=== PATIENT | male | born 1960 | race African-American/Black ===

== ENCOUNTER 2016-11-01 14:57 | Inpatient (IN) | payer BC ==
--- NOTE | 2016-11-01 15:24 | PDOC ---
Attending Attestation - Resident Resident Name: Andre Clemons - ED Attending Attestation I have performed the following: I have examined & evaluated the patient, The case was reviewed & discussed with the resident, I agree w/resident's findings & plan, Exceptions are as noted - HPI HPI: 11/01/16 19:29 56y F hx of HIV (on HAART, VRL und), chronic back pain (upper lumbar region, s/ p epidural injections) presents with back pain. pt states he bent over to cough earlier and aftewards felt a pop in his lower back, no associated numbness/ tingling/weakness, radiation of pain, fever/chills, urinary incontinence, stool incontience. On exam pt has b/l tenderness to lower back. Minima midline tenderness. no neuro deficits, neg SLR lumbar xray notd for L1 compresion fx, however pts tenderness seems to be more distal, in the L5 region here. suspect this is old. awaiting sacral xray pt feeling mildly improved with toradol, but will give valium as well as he is still in persistent pain. pt signed out to on coming team. (dale/aramis) for reassessment and disposition - Physicial Exam PE: 11/01/16 19:33 see above - Medical Decision Making 11/01/16 19:34 see above
[2016-11-01] MEDS ORDERED: CYCLOBENZAPRINE HCL 10 MG TABLET (FP) PO ONE (15:37)
[2016-11-01] MEDS ORDERED: KETOROLAC TROMETHAMINE 60 MG/2 ML VIAL IM ONE ×2 (15:37→23:16)
--- NOTE | 2016-11-01 15:45 | PDOC ---
History of Present Illness - General Chief Complaint: Back Pain Stated Complaint: PAIN Time Seen by Provider: 11/01/16 15:11 - History of Present Illness Initial Comments: 11/01/16 15:37 Patient is a 56 year old male with a history of chronic back pain, HTN, HIV who presents with sudden onset lower back pain. The patient reports that earlier today, he was experiencing a cough and feeling nausea. He was bent over at the toilet when he coughed and felt a pop in his back with immediate severe sharp pain prompting him to present to the ED via EMS today. He endorses some shaking down his legs bilaterally, but denies any tingling down the legs or saddle anesthesia. He denies any fevers, chills, chest pain, SOB, abdominal pain, changes with urination or bowel movements or incontinence. He reports that his current viral load is undetectable. Past History - Past Medical History Allergies/Adverse Reactions: Allergies Allergy/AdvReac Type Severity Reaction Status Date / Time No Known Allergies Allergy Verified 08/10/14 13:37 Home Medications: Ambulatory Orders Darunavir/Cobicistat [Prezcobix 800 mg-150 mg Tablet] 1 each PO DAILY 11/01/16 Dolutegravir Sodium [Tivicay] 50 mg PO BID 11/01/16 Gabapentin [Neurontin] 900 mg PO HS 11/01/16 Losartan Potassium [Cozaar] 50 mg PO DAILY 11/01/16 Oxycodone HCl 20 mg PO QID PRN 11/01/16 Zolpidem Tartrate 10 mg PO HS PRN 11/01/16 HTN: Yes (no meds) - Surgical History Abdominal Surgery: Yes (inguinal hernia) Gastric Stapling: Yes (bipass) - Psycho/Social/Smoking Cessation Hx Anxiety: No Suicidal Ideation: No Smoking History: Never smoked Number of Cigarettes Smoked Daily: 5 Hx Alcohol Use: No Substance Use Type: None Review of Systems - Review of Systems Constitutional: No: Chills, Fever HEENTM: No: Recent change in vision Respiratory: No: Cough, Shortness of Breath Cardiac (ROS): No: Chest Pain, Palpitations, Chest Tightness ABD/GI: No: Constipated, Diarrhea, Nausea, Vomiting : No: Dysuria, Incontinence Musculoskeletal: Yes: Back Pain Integumentary: No: Rash Neurological: No: Headache, Numbness, Paresthesia, Tingling, Weakness *Physical Exam - Physical Exam Comments: 11/01/16 15:49 General Appearance: Nourished. No Apparent Distress HEENT: No Pharyngeal Erythema, Tonsillar Exudate, Tonsillar Erythema Respiratory/Chest: Lungs Clear, Normal Breath Sounds. No Crackles, Rales, Rhonchi, Wheezing Cardiovascular: Regular Rhythm, Regular Rate. No Murmur, Gallop/S3, Gallop/S4 Gastrointestinal/Abdominal: Normal Bowel Sounds, Soft. No Guarding, Rebound, Tenderness Extremity: Normal Capillary Refill Integumentary: Normal Color, Dry, Warm Neurologic: Fully Oriented, Alert, Normal Mood/Affect, Normal Response, Motor Strength 5/5, Sensation to light touch and temperature intact bilaterally in lower extremeties. ED Treatment Course - LABORATORY CBC & Chemistry Diagram: 11/02/16 00:06 11/02/16 00:07 - RADIOLOGY Radiology Studies Ordered: Category Date Time Status SPINE-LUMBAR ONLY [RAD] Stat Radiology 11/01/16 15:35 Ordered Medical Decision Making - Medical Decision Making 11/01/16 15:50 Patient is a 56 year old male with a history of HTN, HIV, and chronic back pain who presents with sudden onset lower back pain. Differential includes but is not limited to: Disk Herniation, Musculoskeletal strain, Cauda Equina Syndrome, Epidural Abscess, or Fracture. We have a low suspicion for epidural abscess or cauda equina syndrome given the patient's reported history and physical exam. Disk herniation is possible but also less likely given his lack of neurological findings such as tingling down the legs. We will obtain a lumbar radiograph to rule out fracture. Given his history and physical exam, the most likely cause of his symptoms is musculoskeletal strain. We will treat the patient with toradol and flexeril and reassess. 11/01/16 19:08 Patient signed out to Dr. Daigle. Pending lumbar sacral radiograph. *DC/Admit/Observation/Transfer Diagnosis at time of Disposition: Lumbar compression fracture Qualifiers: Encounter type: initial encounter Fracture type: closed Qualified Code(s): S32.000A - Wedge compression fracture of unspecified lumbar vertebra, initial encounter for closed fracture - Attestations Physician Attestion: 11/02/16 08:06 I, Dr. Andre Clemons, attest that this document has been prepared under my direction and personally reviewed by me in its entirety. I further attest, that it accurately reflects all work, treatment, procedures and medical decision -making performed by me.
[2016-11-01] MEDS ORDERED: KETOROLAC TROMETHAMINE 60 MG/2 ML VIAL ONE ×2 (16:03→23:20)
[2016-11-01] MEDS ORDERED: CYCLOBENZAPRINE HCL 10 MG TABLET (FP) ONE (16:04)
[2016-11-01] MEDS ORDERED: diazePAM 5 MG TABLET PO ONE (19:02)
--- NOTE | 2016-11-01 19:24 | PDOC ---
*Physical Exam - Vital Signs Last Vital Signs Temp Pulse Resp BP Pulse Ox 98.2 F 100 H 16 181/108 98 11/01/16 15:00 11/01/16 15:00 11/01/16 15:00 11/01/16 15:00 11/01/16 15:00 ED Treatment Course - LABORATORY CBC & Chemistry Diagram: 11/02/16 00:06 11/02/16 00:07 - Medications Given in the ED: ED Medications Discontinued Medications Generic Name Dose Route Start Last Admin Trade Name Demar PRN Reason Stop Dose Admin Cyclobenzaprine HCl 10 mg 11/01/16 15:37 11/01/16 16:07 Flexeril - PO 11/01/16 15:38 10 mg ONCE ONE Administration Ketorolac Tromethamine 60 mg 11/01/16 15:37 11/01/16 16:07 Toradol Injection - IM 11/01/16 15:38 60 mg ONCE ONE Administration Medical Decision Making - Medical Decision Making 11/01/16 21:41 Patient is a 56 year old male with a history of HTN, HIV, and chronic back pain who presents with sudden onset lower back pain. Differential includes but is not limited to: Disk Herniation, Musculoskeletal strain, Cauda Equina Syndrome, Epidural Abscess, or Fracture. Sign out received from Dr. Andre Clemons. Lumbo-sacral xray revealed L1 fracture. Following up with MRI pending. 11/02/16 00:17 Dr Song consulted, confirmed acute L1 vertebral body compression fracture. Will evaluate the patient tomorrow for need of procedure. Until then patient to be admitted. *DC/Admit/Observation/Transfer Diagnosis at time of Disposition: Lumbar compression fracture Qualifiers: Encounter type: initial encounter Fracture type: closed Qualified Code(s): S32.000A - Wedge compression fracture of unspecified lumbar vertebra, initial encounter for closed fracture
[2016-11-01] MEDS ORDERED: diazePAM 5 MG TABLET ONE (19:34)
[2016-11-01] MEDS ORDERED: METHOCARBAMOL 500 MG TABLET PO ONE (23:16)
[2016-11-01] MEDS ORDERED: METHOCARBAMOL 500 MG TABLET ONE (23:19)
--- NOTE | 2016-11-02 00:04 | PDOC ---
*Physical Exam - Vital Signs Last Vital Signs Temp Pulse Resp BP Pulse Ox 98.2 F 100 H 16 181/108 98 11/01/16 15:00 11/01/16 15:00 11/01/16 15:00 11/01/16 15:00 11/01/16 15:00 ED Treatment Course - LABORATORY CBC & Chemistry Diagram: 11/02/16 00:06 11/02/16 00:07 - RADIOLOGY Radiology Studies Ordered: Category Date Time Status LUMBAR SPINE MRI W/O CONTRAST [MRI] Stat MRI 11/01/16 22:33 Ordered - Medications Given in the ED: ED Medications Discontinued Medications Generic Name Dose Route Start Last Admin Trade Name Freq PRN Reason Stop Dose Admin Cyclobenzaprine HCl 10 mg 11/01/16 15:37 11/01/16 16:07 Flexeril - PO 11/01/16 15:38 10 mg ONCE ONE Administration Diazepam 5 mg 11/01/16 19:02 11/01/16 19:36 Valium - PO 11/01/16 19:03 5 mg ONCE ONE Administration Ketorolac Tromethamine 60 mg 11/01/16 15:37 11/01/16 16:07 Toradol Injection - IM 11/01/16 15:38 60 mg ONCE ONE Administration Ketorolac Tromethamine 60 mg 11/01/16 23:16 11/01/16 23:16 Toradol Injection - IM 11/01/16 23:17 60 mg ONCE ONE Administration Methocarbamol 1,000 mg 11/01/16 23:16 11/01/16 23:16 Robaxin - PO 11/01/16 23:17 1,000 mg ONCE ONE Administration Medical Decision Making - Medical Decision Making 11/02/16 00:[address] Sergei Cavanaugh for evaluation of pt. He will evaluate and probably take pt to OR in the morning. *DC/Admit/Observation/Transfer Diagnosis at time of Disposition: Lumbar compression fracture Qualifiers: Encounter type: initial encounter Fracture type: closed Qualified Code(s): S32.000A - Wedge compression fracture of unspecified lumbar vertebra, initial encounter for closed fracture - Discharge Dispostion Admit: Yes
[2016-11-02] MEDS ORDERED: LABETALOL HCL 5 MG/1 ML (100MG/20 ML VIAL) IVPUSH ONE (00:47)
[2016-11-02 00:58] LABS: BASOPHIL 0.9 % (0-2.0); EOSINOPHIL 1.3 % (0-4.5); MCH 29.9 pg (25.7-33.7); MCHC 33.3 g/dl (32.0-35.9); MEAN CELL VOLUME 89.6 fl (80-96); MEAN PLT VOLUME 8.2 fl (7.5-11.1); NEUTROPHILS 67.6 % (42.8-82.8); PLATELET COUNT 213 K/MM3 (134-434); RDW 12.6 % (11.9-15.9)
[2016-11-02 01:22] LABS: INR 0.96 (0.82-1.09); PROTHROMBIN TIME (PATIENT) 10.6 SEC (9.98-11.88)
[2016-11-02] MEDS ORDERED: morphine CARPU-JECT 2 MG/1 ML DISP.SYRIN IVPUSH ONE (01:27)
--- NOTE | 2016-11-02 01:48 | HP ---
CHIEF COMPLAINT: Sever lower back pain. PCP: HISTORY OF PRESENT ILLNESS: Patient is a 56 Year Old, AA, Male, with PMHx of HTN, HIV(on HAART, VRL), chronic lower back pain S/P epidural injection, recent bronchitis, who presented to the ED today with sudden sever lower back pain that started around 12:00 this afternoon. Patient reports he was bending forward about to throw up due to nausea but coughed instead and heard a pop in his lower back causing him to have severe pain. He was on the floor not able to get up till the EMS arrived and carried him. The pain is 10/10 , local, sharp, continuous, does not radiate to lower legs. Patient denies any numbness, tingling, weakness, bladder incontinence, bowel incontinence or saddle anesthesia. Patient denies fever, chills, headache, blurry vision, chest pain, abdominal pain, N/V/D/C. he denies any urinary symptoms. ER course was notable for: (1)Lumbo-sacral xray revealed L1 fracture. (2)Morphine 2 mg IV push Once , Valium 5 mg PO once , Ketorlac IM 60 mg , flexeril 10 mg PO . (3)MRI Lumbar spine was ordered Recent Travel:NO PAST MEDICAL HISTORY: PAST SURGICAL HISTORY:bariatric surgery, L shoulder rotator cuff. Social History: . Smokin/2 pack a day for 40 years Alcohol:None Drugs: None Family History: HTN , DM, dementia with his mother. Allergies: NKDA No Known Allergies Allergy (Verified 08/10/14 13:37) HOME MEDICATIONS: Home Medications Medication Instructions Recorded Darunavir/Cobicistat [Prezcobix 1 each PO DAILY 11/01/16 800 mg-150 mg Tablet] Dolutegravir Sodium [Tivicay] 50 mg PO BID 11/01/16 Gabapentin [Neurontin] 900 mg PO HS 11/01/16 Losartan Potassium [Cozaar] 50 mg PO DAILY 11/01/16 Oxycodone HCl 20 mg PO QID PRN 11/01/16 Zolpidem Tartrate 10 mg PO HS PRN 11/01/16 Current Medications Generic Name Dose Route Start Last Admin Trade Name Freq PRN Reason Stop Dose Admin Gabapentin 900 mg 11/02/16 22:00 Neurontin - PO HS [facility] Losartan Potassium 50 mg 11/02/16 10:00 Cozaar - PO DAILY [facility] Morphine Sulfate 2 mg 11/02/16 02:22 Morphine Injection - IVPUSH Q4H PRN PAIN Non-Formulary Medication 1 each 11/02/16 10:00 Darunavir/Cobicistat [Prezcobix 800 Mg-150 Mg Tablet] PO DAILY [facility] Non-Formulary Medication 50 mg 11/02/16 10:00 Dolutegravir Sodium PO BID [facility] Zolpidem Tartrate 10 mg 11/02/16 02:31 Ambien - PO HS PRN INSOMNIA REVIEW OF SYSTEMS CONSTITUTIONAL: Absent: fever, chills, diaphoresis, generalized weakness, malaise, loss of appetite, weight change HEENT: Absent: rhinorrhea, nasal congestion, throat pain, throat swelling, difficulty swallowing, mouth swelling, ear pain, eye pain, visual changes CARDIOVASCULAR: Absent: chest pain, syncope, palpitations, irregular heart rate, lightheadedness , peripheral edema RESPIRATORY: Absent: cough, shortness of breath, dyspnea with exertion, orthopnea, wheezing, stridor, hemoptysis GASTROINTESTINAL: Absent: abdominal pain, abdominal distension, nausea, vomiting, diarrhea, constipation, melena, hematochezia GENITOURINARY: Absent: dysuria, frequency, urgency, hesitancy, hematuria, flank pain, genital pain MUSCULOSKELETAL: Absent: myalgia, arthralgia, joint swelling,+ lower back pain, neck pain SKIN: Absent: rash, itching, pallor HEMATOLOGIC/IMMUNOLOGIC: Absent: easy bleeding, easy bruising, lymphadenopathy, frequent infections ENDOCRINE: Absent: unexplained weight gain, unexplained weight loss, heat intolerance, cold intolerance NEUROLOGIC: Absent: headache, focal weakness or paresthesias, dizziness, unsteady gait, seizure, mental status changes, bladder or bowel incontinence PSYCHIATRIC: Absent: anxiety, depression, suicidal or homicidal ideation, hallucinations. PHYSICAL EXAMINATION Vital Signs - 24 hr 11/02/16 00:58 Pulse Rate [ 86 Right Apical] Respiratory 18 Rate Blood Pressure 191/121 [Right Arm] O2 Sat by Pulse 98 Oximetry (%) GENERAL: Awake, alert, and fully oriented, in no acute distress. HEAD: Normal with no signs of trauma. EYES: Pupils equal, round and reactive to light, extraocular movements intact, sclera anicteric, conjunctiva clear. No lid lag. NECK: Normal range of motion, supple without lymphadenopathy, JVD, or masses. LUNGS: Breath sounds equal, clear to auscultation bilaterally. No wheezes, and no crackles. No accessory muscle use. HEART: Regular rate and rhythm, normal S1 and S2 without murmur, rub or gallop. ABDOMEN: Soft, nontender, not distended, normoactive bowel sounds, no guarding, no rebound, no masses. No hepatomegaly or splenomegaly. MUSCULOSKELETAL: limited range of motion due to back pain. No bony deformities or tenderness. No CVA tenderness. UPPER EXTREMITIES: 2+ pulses, warm, well-perfused. No cyanosis. No clubbing. No peripheral edema. LOWER EXTREMITIES: 2+ pulses, warm, well-perfused. No calf tenderness. No peripheral edema. NEUROLOGICAL: Cranial nerves II-XII intact. Normal speech. b/l tenderness to lower back. Minimal midline tenderness. no neuro deficits, neg SLR PSYCHIATRIC: Cooperative. Good eye contact. Appropriate mood and affect. SKIN: Warm, dry, normal turgor, no rashes or lesions noted, normal capillary refill. Laboratory Results - last 24 hr 11/02/16 11/02/16 11/02/16 00:06 00:06 00:06 WBC 6.0 RBC 4.43 Hgb 13.2 Hct 39.7 MCV 89.6 MCH 29.9 MCHC 33.3 RDW 12.6 Plt Count 213 MPV 8.2 Neutrophils % 67.6 Lymphocytes % 17.0 Monocytes % 13.2 H Eosinophils % 1.3 Basophils % 0.9 INR 0.96 Anti-A Titer Cancelled Blood Type Cancelled * Antibody Screen Cancelled Spec Expiration Date Cancelled #lumbar xray: shows L1 compression fracture # CXR no acute pathology # MRI Lumbar: Shows Acute partial compression fracture at L1 with Schmorl node on L5, B/L S5 Spondylolysis. ASSESSMENT/PLAN: Patient is a 56 Year Old, AA, Male, with PMHx of HTN, HIV(on HAART, VRL und), chronic lower back pain S/P epidural injection who presented to the ED today with sudden sever lower back pain. He was found to have L1 Compression fracture , and hypertensive urgency 191/121 and was admitted to [facility]-surg for further evaluation and management. # Compression L1 fracture likely 2/2 osteoporosis vs malignancy MM, * Patient is smoker and had bariatric surgery, with no systemic symptoms * CBC, BMP * ESR * TSH * lumbar X-ray and lumbar MRI shows Acute partial compression fracture at L1 with Schmorl node on L5,B/L S5 Spondylolysis. * consult neurosurgery * pain control 2 mg Morphine IV push Q 4 hr , continue Gabapentin 900 mg PO HS. * NPO * Possible procedure tomorrow * # Hypertensive urgency likely 2/2 pain vs med noncompliant, resolved * BP on admission 191/121 * Labetalol 10 mg IV push, Hydralazine 10 mg IV push once given in the ED * BP drop to 156/84 * BP monitor * # HTN, chronic * Continue home meds: Losartan Potassium 50 mg PO DAILY, * BP monitor * Low sodium diet * ##HIV, chronic * Viral load is undetectable, CD4 is unknown * Continue home meds Dolutegravir Sodium [Tivicay]50 mg PO BID,Prezcobix1 each PO DAILY # Insomnia: * Continue home meds Zolpidem 10 mg PO #Prophylaxis: * DVT : moderate risk, not on Heparin , possible surgery tomorrow * #F/E/N * F: not on any fluids * E: WNL * N: NPO now, low sodium diet after procedure #Dispo: * Admit to med-surg * Full code * # Patient education * Smoking cessation
[2016-11-02] MEDS ORDERED: LABETALOL HCL 5 MG/1 ML (200MG/40ML VIAL) IVPB ONE (01:51)
[2016-11-02] MEDS ORDERED: morphine CARPU-JECT 4 MG/1 ML DISP.SYRIN ONE (01:52)
[2016-11-02 02:00] LABS: ANION GAP 8 (8-16); CALCIUM 8.5 mg/dL (8.5-10.1); CO2 25 mmol/L (21-32); CREATININE 0.8 mg/dL (0.7-1.3); GLUCOSE,RANDOM 84 mg/dL (74-106)
[2016-11-02] MEDS ORDERED: ZOLPIDEM TARTRATE 5 MG TABLET PO PRN (02:31)
[2016-11-02] MEDS ORDERED: hydrALAZINE HCL 20 MG/ML VIAL IVPUSH ONE (02:31)
[2016-11-02] MEDS ORDERED: hydrALAZINE HCL 20 MG/ML VIAL ONE ×2 (02:36→15:23)
[2016-11-02 04:47] LABS: THYROID STIMULATING HORMONE 1.51 uIU/ml (0.358-3.74)
[2016-11-02 04:51] VITALS: BMI 26.4
[2016-11-02] MEDS: morphine CARPU-JECT 2 MG/1 ML DISP.SYRIN IVPUSH PRN ×2 (05:43→09:57)
--- NOTE | 2016-11-02 06:59 | PN ---
Teaching Attending Note Name of Resident: Liborio Winslow ATTENDING PHYSICIAN STATEMENT I saw and evaluated the patient. I reviewed the resident's note and discussed the case with the resident. I agree with the resident's findings and plan as documented. SUBJECTIVE: 56 y/o M with HIV and HTN, s/p fall at home after feeling something snap in his lower back. Patient was unable to ambulate after and c/o numbness but no incontinence. PMH: back problems on disability. OBJECTIVE: A&Ox3 in acute distress with movement. bilateral paraspinal tenderness lumbar sacral area, sensation intact. CBCD WBC 6.0 K/mm3 (4.0-10.0) 11/02/16 00:06 RBC 4.43 M/mm3 (4.00-5.60) 11/02/16 00:06 Hgb 13.2 GM/dL (11.7-16.9) 11/02/16 00:06 Hct 39.7 % (35.4-49) 11/02/16 00:06 MCV 89.6 fl (80-96) 11/02/16 00:06 MCHC 33.3 g/dl (32.0-35.9) 11/02/16 00:06 RDW 12.6 % (11.9-15.9) 11/02/16 00:06 Plt Count 213 K/MM3 (134-434) 11/02/16 00:06 MPV 8.2 fl (7.5-11.1) 11/02/16 00:06 CMP Sodium 135 mmol/L (136-145) L 11/02/16 00:07 Potassium 4.4 mmol/L (3.5-5.1) 11/02/16 00:07 Chloride 102 mmol/L (98-107) 11/02/16 00:07 Carbon Dioxide 25 mmol/L (21-32) 11/02/16 00:07 Anion Gap 8 (8-16) 11/02/16 00:07 BUN 17 mg/dL (7-18) 11/02/16 00:07 Creatinine 0.8 mg/dL (0.7-1.3) 11/02/16 00:07 Calcium 8.5 mg/dL (8.5-10.1) 11/02/16 00:07 ASSESSMENT AND PLAN: L1 vertebral compression fracture and b/l L5 spondylolysis Bed rest Pain medication morphine prn Laxatives as needed Neurosurgery consult in AM PT once stable fall risk precautions. DVT prophylaxis Continue home medications Uncontrolled HTN- most likely secondary to pain Labetalol given and continue Losartan.
--- NOTE | 2016-11-02 07:33 | SPA.PREOP ---
- PRE-OP NOTE Dx: L1 burst fracture with intractable pain Planned Procedure: T12-L2 posterior spinal fusion w/ distraction and reduction of kyphotic angulation Surgeon: Sergei Cavanaugh Consent: To be obtained by surgeon after risks, benefits and alternatives explained. Last Vital Signs Temp Pulse Resp BP Pulse Ox 97.9 F 76 18 166/95 100 11/02/16 03:00 11/02/16 03:00 11/02/16 03:00 11/02/16 03:00 11/02/16 03:00 Lab Results WBC 6.0 K/mm3 (4.0-10.0) 11/02/16 00:06 RBC 4.43 M/mm3 (4.00-5.60) 11/02/16 00:06 Hgb 13.2 GM/dL (11.7-16.9) 11/02/16 00:06 Hct 39.7 % (35.4-49) 11/02/16 00:06 MCV 89.6 fl (80-96) 11/02/16 00:06 MCHC 33.3 g/dl (32.0-35.9) 11/02/16 00:06 RDW 12.6 % (11.9-15.9) 11/02/16 00:06 Plt Count 213 K/MM3 (134-434) 11/02/16 00:06 Sodium 135 mmol/L (136-145) L 11/02/16 00:07 Potassium 4.4 mmol/L (3.5-5.1) 11/02/16 00:07 Chloride 102 mmol/L (98-107) 11/02/16 00:07 Carbon Dioxide 25 mmol/L (21-32) 11/02/16 00:07 Anion Gap 8 (8-16) 11/02/16 00:07 BUN 17 mg/dL (7-18) 11/02/16 00:07 Creatinine 0.8 mg/dL (0.7-1.3) 11/02/16 00:07 Random Glucose 84 mg/dL (74-106) 11/02/16 00:07 Calcium 8.5 mg/dL (8.5-10.1) 11/02/16 00:07 Blood Type AB POSITIVE 11/02/16 03:40 Antibody Screen Negative 11/02/16 03:40 INR 0.96 (0.82-1.09) 11/02/16 00:06 - ASSESSMENT/PLAN 1. NPO / IVF 2. GI/DVT PPX 3. Medical optimization / clearance 4. Going to OR today Visit type - Case Type Case Type: ED Admission - Emergency Emergency Visit: Yes ED Registration Date: 11/02/16 Care time: The patient presented to the Emergency Department on the above date and was hospitalized for further evaluation of their emergent condition. - New patient This patient is new to me today: Yes Date on this admission: 11/02/16
[2016-11-02] MEDS ORDERED: BUPIVACAINE HCL/PF 0.5% (5MG/ML) 10 ML VIAL ONE (08:51)
[2016-11-02 09:35] LABS: ALBUMIN 3.3 g/dl (3.4-5.0); ANION GAP 8 (8-16); BILIRUBIN,TOTAL 0.6 mg/dL (0.2-1.0); CALCIUM 8.3 mg/dL (8.5-10.1); CO2 25 mmol/L (21-32); CREATININE 0.9 mg/dL (0.7-1.3); GLUCOSE,RANDOM 100 mg/dL (74-106); PHOSPHOROUS 3.6 mg/dL (2.5-4.9); SGOT/AST 20 U/L (15-37); SGPT/ALT 25 U/L (12-78); TOT PROT 7.1 g/dl (6.4-8.2)
[2016-11-02 09:36] LABS: ALK PHOS 80 U/L (45-117)
[2016-11-02] MEDS ORDERED: PATIENT'S OWN MEDICATION (NON-FORMULARY) (Dolutegravir Sodium 50 MG) PO SCH (10:00)
[2016-11-02] MEDS ORDERED: PATIENT'S OWN MEDICATION (NON-FORMULARY) (Darunavir/Cobicistat [Prezcobix 800 Mg-150 Mg Ta PO SCH (10:00)
[2016-11-02] MEDS ORDERED: LOSARTAN POTASSIUM 25 MG TABLET PO SCH (10:00)
--- NOTE | 2016-11-02 10:09 | CONSULT ---
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 He has had recent epidural steroid injections for his back and recently developed a URI. He also has had bariatric surgery and is HIV positive. He suffered a bout of violent coughing and episodes of nausea at noon on November 01, 2016 when he noticed a sudden "pop" in his back and incapacitating pain which precluded him from moving. He states repeatedly that he cannot walk and cannot bear weight. He is clearly in great distress and turning and shifting in bed is exceptionally difficult for him. He was brought in by ambulance to the [facility] ER. Plain films demonstrate a compression fracture at L1 and bilateral L5 pars fractures with L45 endplate injuries. MRI was ordered and this confirmed these findings and is notable for edema in the L1 body suggesting acuity of the fracture as well as retropulsion of bone which leads to appropriate characterization of this fracture as a burst fracture. There is no obvious posterior element disruption and mild angulation at this level. I discussed the risks, benefits and alternatives to T12-L2 posterior spinal fusion with sabianism of alignment and reduction of the retropulsion through ligamentotaxis with the patient in great detail. I explained that the risks included, but were not limited to: , coma, paralysis, bleeding, infection, CSF leakage possibly requiring spinal drainage or additional surgery and failure to improve. I explained that surgery was not absolutely mandatory, however, given his severe mechanical back pain and incapacitation, this will likely represent a logical treatment plan to mitigate risk of developing DVT or further kyphotic angulation. I explained that the L45 and L5S1 pathologies may be amenable to surgical attention and this may be considered once he recovers from this procedure. He has a chronic pain syndrome and is taking daily narcotics (Oxycontin) with a potentially treatable set of pain generators. We agreed to discuss his lower Lumbar spine chronic problems at a later date. He has bilateral L5 pars fractures and L5S1 foraminal compromise with L45 endplate degeneration/schmorl's nodes which may have an acute componant as well. All questions were answered. Informed consent was obtained. I offered the patient the option of not having surgery or seeking another opinion or another surgeon. He verbalized an understanding of this information. The patient asks that we proceed on an expedited basis.
--- NOTE | 2016-11-02 11:51 | EKG ---
Test Reason : Blood Pressure : / mmHG Vent. Rate : 080 BPM Atrial Rate : 080 BPM P-R Int : 118 ms QRS Dur : 090 ms QT Int : 398 ms P-R-T Axes : 079 044 213 degrees QTc Int : 459 ms NORMAL SINUS RHYTHM POSSIBLE LEFT ATRIAL ENLARGEMENT LEFT VENTRICULAR HYPERTROPHY WITH REPOLARIZATION ABNORMALITY ABNORMAL ECG NO PREVIOUS ECGS AVAILABLE Confirmed by KAEL ALCALA MD ([id number]) on 11/02/2016 11:51:27 AM Referred By: Confirmed By:KAEL ALCALA MD
[2016-11-02] MEDS ORDERED: morphine CARPU-JECT 4 MG/1 ML DISP.SYRIN IVPUSH PRN (12:20)
[2016-11-02] MEDS ORDERED: DOCUSATE SODIUM 100 MG CAPSULE (FP) PO SCH (12:30)
[2016-11-02] MEDS ORDERED: ONDANSETRON 4 MG/2 ML VIAL IVPUSH PRN ×3 (13:16→18:55)
[2016-11-02] MEDS ORDERED: PROMETHAZINE HCL 25 MG/1 ML VIAL IVPUSH PRN ×2 (13:16→18:55)
[2016-11-02] MEDS ORDERED: GENTAMICIN SO4 80 MG/2 ML VIAL ONE (13:23)
[2016-11-02] MEDS ORDERED: SODIUM CHLORIDE 0.9% P/F 10 ML VIAL IJ ONE ×2 (13:24→13:25)
[2016-11-02] MEDS ORDERED: LIDOCAINE HCL/PF 2% SDV 5ML VIAL ONE (13:24)
[2016-11-02] MEDS ORDERED: ROCURONIUM BROMIDE 50 MG/5 ML VIAL ONE ×2 (13:24→14:03)
[2016-11-02] MEDS ORDERED: MIDAZOLAM HCL 2 MG/2 ML SINGLE DOSE VIAL ONE (13:24)
--- NOTE | 2016-11-02 13:24 | PN ---
Teaching Attending Note Name of Resident: Kristen Smith ATTENDING PHYSICIAN STATEMENT I saw and evaluated the patient. I reviewed the resident's note and discussed the case with the resident. I agree with the resident's findings and plan as documented. SUBJECTIVE:states LBP not controlled with pain medications. denies numbness/ tingling, sensation change, bladder/bowel incontinence last saw PMD 2weeks ago. as per pt routine labs were done and normal per him. OBJECTIVE: Last Vital Signs Temp Pulse Resp BP Pulse Ox 98.1 F 74 18 179/106 100 11/02/16 10:00 11/02/16 10:11/02/16 10:11/02/16 10:11/02/16 03:00 General NAD CV S1 S2 RRR no murmur/rub/gallop Lungs CTA B/l no wheezing/rales/rhonchi Extremities sensation grossly intact B/L LE. strength 4/5 B/L LE which was limited due to pain. did not attempt full ROM excercise due to pain elicited at rest. back not examined as pt refused due to pain ASSESSMENT AND PLAN: 56yo M with PMH HTN, HIV and chronic back pain presented to the ER with excruciating back pain 1. Acute L1 fracture- concern for pathological fracture although pt does have risk factors (chronic low back pain with osteoarthritis and receives steroid injections for pain) NPO for spinal fusion today. will increase morphine to improve pain control. will need to r/o pathological fractures. calcium level/ renal/liver/TSH all WNL. may have malabsorption issues due to bariatric surgery (likley [id number] but does not recall which one "the major one"). urine calcium and testosterone levels pending. will need to check vit D as outpatient as not able to order on inpatients. HARRT therapy can cause osteonecrosis however atypical to see in vertebrae and this appears to be acute with no suggestion of bone necrosis. PT 2. HTN- above goal. possible due to pain. continue home medications will adjust after pain is controlled 3. HIV- cont HARRT therapy 4. DVT ppx- SCD as pt is going for spinal surgery 5. PT assessment as may require SAMIA on discharge.
[2016-11-02] MEDS ORDERED: ceFAZolin SODIUM 1 GM VIAL ONE ×2 (13:25→21:27)
[2016-11-02] MEDS ORDERED: LACTATED RINGERS SOLUTION 1,000 ML IV SCH ×2 (13:30→16:45)
--- NOTE | 2016-11-02 13:50 | PN ---
Physical Exam: SUBJECTIVE: Patient seen and examined at bedside. Pt states that his back pain is severe and that the dosage he is currently on is not enough. Denies SOB, chest pain, or pain in his lower extremities. Pt is NPO for T12-L2 spinal fusion today. OBJECTIVE: Vital Signs Period Temp Pulse Resp BP Sys/Silva Pulse Ox Last 24 Hr 97.9 F-98.1 F 74-86 16-18 156-191/84-121 98-100 GENERAL: The patient is awake, alert, and fully oriented, in no acute distress. HEAD: Normal with no signs of trauma. EYES: PERRL, extraocular movements intact, sclera anicteric, conjunctiva clear. No ptosis. ENT: oropharynx clear without exudates, moist mucous membranes. NECK: Trachea midline, supple. LUNGS: Breath sounds equal, clear to auscultation bilaterally, no wheezes, no crackles, no accessory muscle use. HEART: Regular rate and rhythm, S1, S2 without murmur, rub or gallop. ABDOMEN: Soft, nontender, nondistended, normoactive bowel sounds, no guarding, no rebound, no hepatosplenomegaly, no masses. EXTREMITIES: 2+ posterior tibial, radial pulses, difficult to assess motor strength due to pt's severe back pain NEUROLOGICAL: Cranial nerves II through XII grossly intact. Laboratory Results - last 24 hr 11/02/16 11/02/16 11/02/16 00:06 00:06 00:06 WBC 6.0 RBC 4.43 Hgb 13.2 Hct 39.7 MCV 89.6 MCH 29.9 MCHC 33.3 RDW 12.6 Plt Count 213 MPV 8.2 Neutrophils % 67.6 Lymphocytes % 17.0 Monocytes % 13.2 H Eosinophils % 1.3 Basophils % 0.9 ESR INR 0.96 PTT (Actin FS) Sodium Potassium Chloride Carbon Dioxide Anion Gap BUN Creatinine Creat Clearance w eGFR Random Glucose Calcium Phosphorus Total Bilirubin AST ALT Alkaline Phosphatase Total Protein Albumin TSH Anti-A Titer Cancelled Blood Type Cancelled Antibody Screen Cancelled Spec Expiration Date Cancelled 11/02/16 11/02/16 11/02/16 00:07 03:40 03:40 WBC RBC Hgb Hct MCV MCH MCHC RDW Plt Count MPV Neutrophils % Lymphocytes % Monocytes % Eosinophils % Basophils % ESR INR PTT (Actin FS) 27.3 Sodium 135 L Potassium 4.4 Chloride 102 Carbon Dioxide 25 Anion Gap 8 BUN 17 Creatinine 0.8 Creat Clearance w eGFR Random Glucose 84 Calcium 8.5 Phosphorus Total Bilirubin AST ALT Alkaline Phosphatase Total Protein Albumin TSH Anti-A Titer Blood Type AB POSITIVE Antibody Screen Negative Spec Expiration Date 11/02/16 11/02/16 11/02/16 03:40 03:40 06:00 WBC RBC Hgb Hct MCV MCH MCHC RDW Plt Count MPV Neutrophils % Lymphocytes % Monocytes % Eosinophils % Basophils % ESR 19 INR PTT (Actin FS) Sodium 137 Cancelled Potassium 4.0 Cancelled Chloride 104 Cancelled Carbon Dioxide 25 Cancelled Anion Gap 8 Cancelled BUN 17 Cancelled Creatinine 0.9 Cancelled Creat Clearance w eGFR > 60 Cancelled Random Glucose 100 Cancelled Calcium 8.3 L Cancelled Phosphorus 3.6 Total Bilirubin 0.6 Cancelled AST 20 Cancelled ALT 25 Cancelled Alkaline Phosphatase 80 Cancelled Total Protein 7.1 Cancelled Albumin 3.3 L Cancelled TSH 1.51 Anti-A Titer Blood Type Antibody Screen Spec Expiration Date Active Medications Generic Name Dose Route Start Last Admin Trade Name Freq PRN Reason Stop Dose Admin Docusate Sodium 100 mg 11/02/16 12:30 Colace - PO DAILY [facility] Fentanyl 50 mcg 11/02/16 13:16 Sublimaze Injection - IVPUSH 11/05/16 13:17 [id number] PRN PAIN Gabapentin 900 mg 11/02/16 22:00 Neurontin - PO HS [facility] Lactated Ringer's 1,000 mls @ 125 mls/hr 11/02/16 13:30 Lactated Ringers Solution IV ASDIR RENUKA Losartan Potassium 50 mg 11/02/16 10:00 11/02/16 09:57 Cozaar - PO 50 mg DAILY RENUKA Administration Morphine Sulfate 3 mg 11/02/16 12:20 Morphine Injection - IVPUSH Q4H PRN PAIN Non-Formulary Medication 1 each 11/02/16 10:00 Darunavir/Cobicistat [Prezcobix 800 Mg-150 Mg Tablet] PO DAILY RENUKA Non-Formulary Medication 50 mg 11/02/16 10:00 Dolutegravir Sodium PO BID [facility] Ondansetron HCl 4 mg 11/02/16 13:16 Zofran Injection IVPUSH 11/02/16 19:17 Q6H PRN NAUSEA AND/OR VOMITING Promethazine HCl 12.5 mg 11/02/16 13:16 Phenergan Injection - IVPUSH 11/02/16 19:17 Q6H PRN NAUSEA Senna 2 tab 11/02/16 22:00 Senna - PO HS RENUKA Zolpidem Tartrate 10 mg 11/02/16 02:31 Ambien - PO HS PRN INSOMNIA ASSESSMENT/PLAN: 56 yr old M with PMH HTN, HIV (on HAART), chronic lower back pain s/p epidural injection, who presented to ED with sudden, severe lower back pain. Pt admitted for L1 compression fracture and HTN urgency. 1. L1 burst fracture with intractable pain -Lumbar x-ray and MRI reveal acute partial compression fx at L1 -T12-L2 posterior spinal fusion today -R/o malignancy, osteonecrosis from HIV meds- F/u urine Ca, testosterone -PT after surgery -Morphine has been increased to 3mg IVP q4 (from 2mg) since pt endorses increased pain 2. HTN urgency likely secondary to pain -BP on admission 191/121, received Labetalol 10 mg IVP, hydralazine 10mg IVP in ED -Monitor BP 3. HTN- chronic -Continue home medication: Cozaar 50 mg PO daily 4. Delayed bladder emptying -F/u PSA 5. Constipation -Senna, colace added to regimen 6. HIV- chronic -Continue home meds Dolutegravir Sodium 50 mg PO BID, Prezcobiz1 each PO daily 7. Insomnia -Continue Zolpidem 10mg PO 8. DVT prophylaxis -SCD's F/E/N -not on fluids -monitor electrolytes -NPO now, low sodium diet after procedure Visit type - Emergency Visit Emergency Visit: No - New Patient This patient is new to me today: No - Critical Care Critical Care patient: No
[2016-11-02] MEDS ORDERED: ceFAZolin SODIUM 1 GM VIAL IVPB ONE (14:38)
[2016-11-02] MEDS ORDERED: DEXAMETHASONE SOD PHOSPHATE 4 MG/1 ML VIAL ONE ×2 (14:46→16:05)
[2016-11-02] MEDS ORDERED: PROPOFOL 20 ML ONE (15:30)
[2016-11-02] MEDS ORDERED: NEOSTIGMINE METHYLSULFATE 0.5 MG/ML - 10 ML MDV ONE (16:04)
[2016-11-02] MEDS ORDERED: BUPIVACAINE HCL/PF 0.5% (5MG/ML) 10 ML VIAL IJ ONE (16:20)
[2016-11-02] MEDS ORDERED: PROMETHAZINE HCL 25 MG/1 ML VIAL IVPB PRN (16:36)
[2016-11-02] MEDS ORDERED: DEXAMETHASONE SOD PHOSPHATE 4 MG/1 ML VIAL IVPUSH PRN (16:36)
[2016-11-02] MEDS ORDERED: HYDROmorphone *PCA* 10MG/50ML DISP.SYRIN PCA SCH (16:45)
[2016-11-02] MEDS ORDERED: ACETAMINOPHEN 1000 MG/100 ML VIAL (NON FORMULARY) IVPB ONE (16:45)
--- NOTE | 2016-11-02 16:56 | OP ---
Operative Note - Note: Operative Date: 11/02/16 Pre-Operative Diagnosis: L1 compression fracture Operation: T12-L1 fusion Surgeon: Sergei Cavanaugh Commercial Escrow Officer: Rakel Lowery Anesthesiologist/MEMS ENGINEER: Jose Becerril Anesthesia: General Estimated Blood Loss (mls): 100 Drains, Volume Out (mls): 100 (gao) Fluid Volume Replaced (mls): 1,300 Operative Report Dictated: Yes
--- NOTE | 2016-11-02 17:00 | SURG ---
Surgery Service Crew Supervisor Note Service Crew Supervisor: Rakel Lowery PA-C Date of Service: 11/02/16 Diagnosis: L1 compression fracture Procedure: T12-L2 fusion I was present for the entirety of the operative procedure. For further detail, please refer to operative report. Visit type - Case Type Case Type: ED Admission - Emergency Emergency Visit: Yes ED Registration Date: 11/02/16 Care time: The patient presented to the Emergency Department on the above date and was hospitalized for further evaluation of their emergent condition. - New patient This patient is new to me today: Yes Date on this admission: 11/02/16 - Critical Care Critical Care patient: No
[2016-11-02] MEDS ORDERED: LORAZEPAM CARPU-JECT 2 MG/ML DISP.SYRIN ONE (17:17)
[2016-11-02] MEDS ORDERED: LORAZEPAM CARPU-JECT 2 MG/ML DISP.SYRIN IVPUSH ONE (17:20)
[2016-11-02] MEDS: LACTATED RINGERS SOLUTION 1,000 ML IV SCH (17:30)
[2016-11-02] MEDS ORDERED: DEXTROSE 5%-WATER - 50 ML IVPB ONE (21:28)
[2016-11-02] MEDS: GABAPENTIN 300 MG CAPSULE (FP) PO SCH (21:31)
[2016-11-02] MEDS: SENNOSIDES 8.6MG TABLET (FP) PO SCH (21:32)
[2016-11-02] MEDS: CEFAZOLIN 1 GM in DEXTROSE 5%-WATER - 50 ML IVPB SCH (21:33)
[2016-11-02] MEDS ORDERED: SENNOSIDES 8.6MG TABLET (FP) PO SCH (22:00)
[2016-11-02] MEDS ORDERED: GABAPENTIN 300 MG CAPSULE (FP) PO SCH (22:00)
[2016-11-03] MEDS: LACTATED RINGERS SOLUTION 1,000 ML IV SCH ×2 (02:50→10:32)
[2016-11-03] MEDS ORDERED: ceFAZolin SODIUM 1 GM VIAL ONE (05:21)
[2016-11-03] MEDS ORDERED: DEXTROSE 5%-WATER - 50 ML IVPB ONE (05:21)
[2016-11-03] MEDS: CEFAZOLIN 1 GM in DEXTROSE 5%-WATER - 50 ML IVPB SCH (05:29)
[2016-11-03 09:19] LABS: BASOPHIL 0.2 % (0-2.0); MCH 30.2 pg (25.7-33.7); MCHC 33.3 g/dl (32.0-35.9); MEAN CELL VOLUME 90.9 fl (80-96); NEUTROPHILS 78.5 % (42.8-82.8); PLATELET COUNT 216 K/MM3 (134-434); RDW 12.5 % (11.9-15.9); WHITE BLOOD COUNT 10.1 K/mm3 (4.0-10.0)
[2016-11-03] MEDS: LOSARTAN POTASSIUM 50 MG TABLET (FP) PO SCH (10:31)
[2016-11-03] MEDS: DOCUSATE SODIUM 100 MG CAPSULE (FP) PO SCH (10:31)
[2016-11-03 10:32] LABS: ANION GAP 8 (8-16); CALCIUM 8.3 mg/dL (8.5-10.1); CO2 26 mmol/L (21-32); CREATININE 0.9 mg/dL (0.7-1.3); GLUCOSE,RANDOM 109 mg/dL (74-106)
--- NOTE | 2016-11-03 11:09 | PN ---
Teaching Attending Note Name of Resident: Kristen Smith ATTENDING PHYSICIAN STATEMENT I saw and evaluated the patient. I reviewed the resident's note and discussed the case with the resident. I agree with the resident's findings and plan as documented. SUBJECTIVE:states pain is not controlled. not able to move due to pain/fear of being in pain. denies CP, SOB, fever, chills, N/V/C/D OBJECTIVE: Last Vital Signs Temp Pulse Resp BP Pulse Ox 98.5 F 95 H 20 156/92 100 11/03/16 06:12 11/03/16 06:12 11/03/16 06:12 11/03/16 06:12 11/02/16 21:00 General NAD Extremities sensation grossly intact B/L LE. refused to move legs. ASSESSMENT AND PLAN: 56yo M with PMH HTN, HIV and chronic back pain presented to the ER with excruciating back pain 1. Acute L1 fracture-s/p T12-L2 fusion 11/02. on dilaudid UX UI DESIGNER pump. will increase bolus dosing to achieve pain control. further management per neurosurgery. workup for cause pending. urine calcium and testosterone level. 2. HTN- above goal. possible due to pain. continue home medications will adjust after pain is controlled 3. HIV- cont HARRT therapy 4. DVT ppx- SCD as pt is going for spinal surgery 5. PT assessment as may require SAMIA on discharge.
[2016-11-03] MEDS: HYDROmorphone *PCA* 10MG/50ML DISP.SYRIN PCA SCH (11:22)
[2016-11-03] MEDS ORDERED: ACETAMINOPHEN 1000 MG/100 ML VIAL (NON FORMULARY) IVPB PRN (11:30)
--- NOTE | 2016-11-03 11:39 | PN ---
Progress Note (short form) - Note Progress Note: Pot op day#1.S/P T12-L2 Posterior instrumentation with fusion under Ga uneventful.Patient stable and c/0 pain score of 5-6/10.So will continue Dilaudid PROFESSOR OF MUSICOLOGY and aid Lyrica and Ofirmev to it.Will f/u.
[2016-11-03] MEDS ORDERED: PREGABALIN 100 MG CAPSULE PO SCH (11:45)
--- NOTE | 2016-11-03 12:21 | PN ---
Progress Note (short form) - Note Progress Note: Patient stable after Lumbar 1 fracture stabilization. He has expected incisional pain associated with the procedure performed and his chronic pain history. Dr. Haven Becerril was available to discuss his pain needs and we agreed with elevating his Dilaudid CAR PARK ATTENDANT and adding Lyrica. All questions answered. I again discussed the potential role of L4-S1 decompression and stabilization to address persisting pain generators with possible recent aggravation of L45. The patient verbalizes an understanding.
[2016-11-03] MEDS: PATIENT'S OWN MEDICATION (NON-FORMULARY) (Dolutegravir Sodium 50 MG) PO SCH ×3 (12:55→21:17)
[2016-11-03] MEDS: PATIENT'S OWN MEDICATION (NON-FORMULARY) (Darunavir/Cobicistat [Prezcobix 800 Mg-150 Mg Ta PO SCH (12:55)
[2016-11-03] MEDS ORDERED: PT OWN MED DRAWER 7, Y5N ONE (13:01)
[2016-11-03] MEDS: PREGABALIN 50 MG CAPSULE PO SCH ×2 (13:43→21:14)
--- NOTE | 2016-11-03 14:30 | PN ---
Physical Exam: SUBJECTIVE: Patient seen and examined at bedside. Pt is s/p spinal fusion. Pt states that his pain is severe and that the MANAGER OF COMPENSATION is not sufficient. He feels more uncomfortable than he did before the surgery and mentions that he is unable to move. OBJECTIVE: Vital Signs Period Temp Pulse Resp BP Sys/Silva Pulse Ox Last 24 Hr 98.1 F-99.5 F 76-130 12-21 101-163/49-92 100-100 GENERAL: The patient is awake, alert, and fully oriented, in mild distress HEAD: Normal with no signs of trauma. EYES: PERRL, extraocular movements intact, sclera anicteric, conjunctiva clear. NECK: Trachea midline, supple. LUNGS: Breath sounds equal, clear to auscultation bilaterally, no wheezes, no crackles, no accessory muscle use. HEART: Regular rate and rhythm, S1, S2 without murmur, rub or gallop. ABDOMEN: Soft, nontender, nondistended, normoactive bowel sounds, no guarding, no rebound, no hepatosplenomegaly, no masses. EXTREMITIES: 2+ posterior tibial pulses, warm, well-perfused, no edema. Difficult to assess strength as pt's back pain is severe, sensation however is intact in upper and lower extremities NEUROLOGICAL: Cranial nerves II through XII grossly intact. Laboratory Results - last 24 hr 11/03/16 11/03/16 06:40 06:40 WBC 10.1 H D RBC 4.03 Hgb 12.2 Hct 36.6 MCV 90.9 MCH 30.2 MCHC 33.3 RDW 12.5 Plt Count 216 MPV 9.0 Neutrophils % 78.5 Lymphocytes % 8.3 D Monocytes % 13.0 H Eosinophils % 0.0 D Basophils % 0.2 Sodium 136 Potassium 4.2 Chloride 102 Carbon Dioxide 26 Anion Gap 8 BUN 12 D Creatinine 0.9 Random Glucose 109 H Calcium 8.3 L Active Medications Generic Name Dose Route Start Last Admin Trade Name Freq PRN Reason Stop Dose Admin Acetaminophen 650 mg 11/02/16 16:43 Tylenol - PO Q6H PRN FEVER OR PAIN Docusate Sodium 100 mg 11/03/16 10:00 11/03/16 10:31 Colace - PO 100 mg DAILY RENUKA Administration Gabapentin 900 mg 11/02/16 22:00 11/02/16 21:31 Neurontin - PO 900 mg HS RENUKA Administration Hydromorphone HCl 10 mg 11/03/16 10:33 11/03/16 11:22 Dilaudid Sports Therapist - MANAGER OF COMPENSATION 11/09/16 16:36 10 mg MANAGER OF COMPENSATION RENUKA Administration Protocol Lactated Ringer's 1,000 mls @ 125 mls/hr 11/02/16 18:55 11/03/16 10:32 Lactated Ringers Solution IV 125 mls/hr ASDIR RENUKA Administration Losartan Potassium 50 mg 11/03/16 10:00 11/03/16 10:31 Cozaar - PO 50 mg DAILY RENUKA Administration Non-Formulary Medication 1 each 11/03/16 10:00 11/03/16 12:55 Darunavir/Cobicistat [Prezcobix 800 Mg-150 Mg Tablet] PO 1 each DAILY RENUKA Administration Non-Formulary Medication 50 mg 11/02/16 22:00 11/03/16 12:55 Dolutegravir Sodium PO 50 mg BID RENUKA Administration Pregabalin 100 mg 11/03/16 13:01 11/03/16 13:43 Lyrica - PO 100 mg BID RENUKA Administration Promethazine HCl 12.5 mg 11/02/16 16:36 Phenergan Injection - IVPB Q6H PRN NAUSEA AND/OR VOMITING Senna 2 tab 11/02/16 22:00 11/02/16 21:32 Senna - PO 2 tab HS RENUKA Administration ASSESSMENT/PLAN: 56 yr old M with PMH HTN, HIV (on HAART), chronic lower back pain s/p epidural injection, who presented to ED with sudden, severe lower back pain. Pt admitted for L1 compression fracture and HTN urgency. 1. L1 burst fracture with intractable pain -/sp spinal fusion -R/o malignancy, osteonecrosis from HIV meds- F/u urine Ca, testosterone -still pending -PT after surgery as will be rec by neurosurgery -MANAGER OF COMPENSATION setting has been changed to 0.4mg Bolus (from 0.2) d/t pt's severe pain -Lyrica 100 mg PO BID 2. HTN urgency likely secondary to pain -BP on admission 191/121, received Labetalol 10 mg IVP, hydralazine 10mg IVP in ED -BP now 140/86, improved 3. HTN- chronic -Continue Cozaar 50 mg PO daily 4. Delayed bladder emptying -F/u PSA - still pending 5. Constipation -Senna, colace added to regimen 6. HIV- chronic -Continue home meds Dolutegravir Sodium 50 mg PO BID, Prezcobiz1 each PO daily 7. Insomnia -Continue Zolpidem 10mg PO 8. DVT prophylaxis -SCD's F/E/N -LR 125 mls/hr -monitor electrolytes -on clear liquids, if tolerate can advance diet Visit type - Emergency Visit Emergency Visit: No - New Patient This patient is new to me today: No - Critical Care Critical Care patient: No
[2016-11-03] MEDS: GABAPENTIN 300 MG CAPSULE (FP) PO SCH (21:14)
[2016-11-03] MEDS: SENNOSIDES 8.6MG TABLET (FP) PO SCH (21:15)
[2016-11-04] MEDS: ACETAMINOPHEN 325 MG TABLET (FP) PO PRN ×2 (01:45→22:51)
[2016-11-04] MEDS: HYDROmorphone *PCA* 10MG/50ML DISP.SYRIN PCA SCH ×2 (03:41→19:41)
[2016-11-04] MEDS ORDERED: VANCOMYCIN 1 GRAM (PRE-DOCKED) 1,000 MG/250 ML BAG IVPB ONE ×2 (06:30→11:00)
[2016-11-04] MEDS ORDERED: PIPERACILLIN/TAZOB 3.375 GM/50 ML PRE-DOCKED IV ONE (06:30)
[2016-11-04] MEDS ORDERED: PIPERACILLIN/TAZOB 3.375 GM 3.375 GM in DEXTROSE 5%-WATER - 50 ML IVPB ONE ×2 (07:00→11:00)
[2016-11-04 07:52] LABS: BASOPHIL 0.6 % (0-2.0); EOSINOPHIL 0.1 % (0-4.5); MCH 29.7 pg (25.7-33.7); MCHC 32.8 g/dl (32.0-35.9); MEAN CELL VOLUME 90.6 fl (80-96); NEUTROPHILS 74.6 % (42.8-82.8); PLATELET COUNT 164 K/MM3 (134-434); RDW 12.3 % (11.9-15.9); WHITE BLOOD COUNT 11.7 K/mm3 (4.0-10.0)
[2016-11-04 07:56] LABS: ANION GAP 6 (8-16); CALCIUM 8.1 mg/dL (8.5-10.1); CO2 27 mmol/L (21-32); CREATININE 0.9 mg/dL (0.7-1.3); GLUCOSE,RANDOM 86 mg/dL (74-106)
[2016-11-04] MEDS: LACTATED RINGERS SOLUTION 1,000 ML IV SCH ×2 (08:11→15:43)
--- NOTE | 2016-11-04 08:49 | PN ---
Progress Note (short form) - Note Progress Note: c/o back pain on movement. pain is controlled when at rest. c/o dysuria and band like pain across his abdomen. similar to pain he had when he first arrived. no BM since arrival to the hospital. denies Cp, SOB, chills, N/V/D, YOST , AMS, photophobia Current Medications Generic Name Dose Route Start Last Admin Trade Name Freq PRN Reason Stop Dose Admin Acetaminophen 650 mg 11/02/16 16:43 11/04/16 01:45 Tylenol - PO 650 mg Q6H PRN Administration FEVER OR PAIN Docusate Sodium 100 mg 11/03/16 10:00 11/03/16 10:31 Colace - PO 100 mg DAILY RENUKA Administration Gabapentin 900 mg 11/02/16 22:00 11/03/16 21:14 Neurontin - PO 900 mg HS RENUKA Administration Hydromorphone HCl 10 mg 11/03/16 10:33 11/04/16 03:41 Dilaudid Front Desk Supervisor - HVAC TECH 11/09/16 16:36 10 mg HVAC TECH RENUKA Administration Protocol Lactated Ringer's 1,000 mls @ 125 mls/hr 11/02/16 18:55 11/04/16 08:11 Lactated Ringers Solution IV Not Given ASDIR RENUKA Losartan Potassium 50 mg 11/03/16 10:00 11/03/16 10:31 Cozaar - PO 50 mg DAILY RENUKA Administration Non-Formulary Medication 1 each 11/03/16 10:00 11/03/16 12:55 Darunavir/Cobicistat [Prezcobix 800 Mg-150 Mg Tablet] PO 1 each DAILY RENUKA Administration Non-Formulary Medication 50 mg 11/02/16 22:00 11/03/16 21:17 Dolutegravir Sodium PO 50 mg BID RENUKA Administration Pregabalin 100 mg 11/03/16 13:01 11/03/16 21:14 Lyrica - PO 100 mg BID RENUKA Administration Promethazine HCl 12.5 mg 11/02/16 16:36 Phenergan Injection - IVPB Q6H PRN NAUSEA AND/OR VOMITING Senna 2 tab 11/02/16 22:00 11/03/16 21:15 Senna - PO 2 tab HS RENUKA Administration Last Vital Signs Temp Pulse Resp BP Pulse Ox 101.6 F H 102 H 20 178/99 99 11/04/16 06:00 11/04/16 07:41 11/04/16 07:41 11/04/16 07:41 11/03/16 21:00 Intake & Output 11/01/16 11/02/16 11/03/16 11/04/16 23:59 23:59 23:59 23:59 Intake Total 2550 2825 1850 Output Total 1405 2215 1815 Balance 1145 610 35 Weight 175 lb 168 lb 7 oz General NAD Lungs CTA B/L anteriorly no wheezing or crackles Abdomen soft mildly distended NT back occlusive dressing mid-spine. area very tender. no erythema, warmth, or induration. +BLAZE drain in sangenous drainage. Extremities sensation grossly intact B/L LE. ROM B/L LE limited due to pain CBCD WBC 11.7 K/mm3 (4.0-10.0) H 11/04/16 06:00 RBC 4.12 M/mm3 (4.00-5.60) 11/04/16 06:00 Hgb 12.3 GM/dL (11.7-16.9) 11/04/16 06:00 Hct 37.4 % (35.4-49) 11/04/16 06:00 MCV 90.6 fl (80-96) 11/04/16 06:00 MCHC 32.8 g/dl (32.0-35.9) 11/04/16 06:00 RDW 12.3 % (11.9-15.9) 11/04/16 06:00 Plt Count 164 K/MM3 (134-434) D 11/04/16 06:00 MPV 9.0 fl (7.5-11.1) 11/04/16 06:00 CMP Sodium 133 mmol/L (136-145) L 11/04/16 06:00 Potassium 4.6 mmol/L (3.5-5.1) 11/04/16 06:00 Chloride 100 mmol/L (98-107) 11/04/16 06:00 Carbon Dioxide 27 mmol/L (21-32) 11/04/16 06:00 Anion Gap 6 (8-16) L 11/04/16 06:00 BUN 11 mg/dL (7-18) 11/04/16 06:00 Creatinine 0.9 mg/dL (0.7-1.3) 11/04/16 06:00 Creat Clearance w eGFR Cancelled 11/02/16 06:00 Calcium 8.1 mg/dL (8.5-10.1) L 11/04/16 06:00 Total Bilirubin Cancelled 11/02/16 06:00 AST Cancelled 11/02/16 06:00 ALT Cancelled 11/02/16 06:00 Alkaline Phosphatase Cancelled 11/02/16 06:00 Total Protein Cancelled 11/02/16 06:00 Albumin Cancelled 11/02/16 06:00 ASSESSMENT AND PLAN: 56yo M with PMH HTN, HIV and chronic back pain presented to the ER with excruciating back pain 1. Acute L1 fracture-s/p T12-L2 fusion 11/02. BLAZE drain with sangenous drainage. on dilaudid HVAC TECH pump. started on lyrica. pain improved. further management per neurosurgery. OOB to chair. workup for cause pending. urine calcium and testosterone level. 2. Fever- Tm 102.7. mild leukocytosis. sepsis workup initiated. CXR with no infiltrate. possible UTI vs bactermia with BLAZE catheter in place. no meningeal signs. received Vanco/Zosyn. spoke with neurosurgery, will evaluate today and remove drain. will do watchful waiting at this time. agreed if pt has additional fever spike with consult ID and treat empiricaly as pt is immunocompromised. UA pending. f/u BCX. will monitor closely 3. HTN- above goal. possible due to pain. continue home medications will adjust after pain is controlled 4. Constipation-likley opiate induced vs fear of having BM as pt does not want to move. on colace/senna start miralax 5. HIV- cont HARRT therapy 6. DVT ppx- SCD 7. PT assessment as may require SAMIA on discharge. Visit type - Emergency Visit Emergency Visit: Yes ED Registration Date: 11/02/16 Care time: The patient presented to the Emergency Department on the above date and was hospitalized for further evaluation of their emergent condition. - New Patient This patient is new to me today: No - Critical Care Critical Care patient: No - Discharge Referral Referred to [facility] Med P.C.: No
--- NOTE | 2016-11-04 09:31 | PN ---
Progress Note (short form) - Note Progress Note: POD #2 - s/p T12-L2 posterior instrumentation with interbody fusion under general anesthesia with dilaudid EXPLOSIVE SPECIALIST for postop pain management. Pt. doing well, resting comfortably in bed. C/o pain upon movement. Dilaudid EXPLOSIVE SPECIALIST dose increased yesterday to 0.4mg from 0.2mg. Lyrica was added as well. Will continue EXPLOSIVE SPECIALIST and reevaluate tomorrow.
[2016-11-04] MEDS ORDERED: PIPERACILLIN/TAZOBACTAM 3.375 GM VIAL IVPB ONE (10:48)
[2016-11-04] MEDS ORDERED: DEXTROSE 5%-WATER - 50 ML IVPB ONE (10:49)
[2016-11-04] MEDS ORDERED: PT OWN MED DRAWER 7, Y5N ONE ×2 (10:49→11:48)
[2016-11-04] MEDS: PREGABALIN 50 MG CAPSULE PO SCH ×2 (11:03→22:42)
[2016-11-04] MEDS: DOCUSATE SODIUM 100 MG CAPSULE (FP) PO SCH (11:04)
[2016-11-04] MEDS: LOSARTAN POTASSIUM 50 MG TABLET (FP) PO SCH (11:04)
[2016-11-04] MEDS: PATIENT'S OWN MEDICATION (NON-FORMULARY) (Darunavir/Cobicistat [Prezcobix 800 Mg-150 Mg Ta PO SCH (11:05)
[2016-11-04] MEDS: PATIENT'S OWN MEDICATION (NON-FORMULARY) (Dolutegravir Sodium 50 MG) PO SCH ×2 (11:05→22:43)
[2016-11-04] MEDS: POLYETHYLENE GLYCOL 3350 119 GM BTL PO SCH (11:06)
[2016-11-04 15:35] LABS: URINE APPEARANCE CLEAR; URINE BILIRUBIN NEGATIVE (NEGATIVE); URINE BLOOD NEGATIVE (NEGATIVE); URINE COLOR LTYELLOW; URINE GLUCOSE (UA) NEGATIVE (NEGATIVE); URINE KETONE NEGATIVE (NEGATIVE); URINE LEUK ESTERASE NEGATIVE (NEGATIVE); URINE NITRITE NEGATIVE (NEGATIVE); URINE PROTEIN NEGATIVE (NEGATIVE)
[2016-11-04] MEDS: SENNOSIDES 8.6MG TABLET (FP) PO SCH (22:42)
[2016-11-04] MEDS: GABAPENTIN 300 MG CAPSULE (FP) PO SCH (22:42)
[2016-11-05 00:05] LABS: TESTOSTERONE,TOTAL 362 ng/dL (264-916)
[2016-11-05] MEDS: HYDROmorphone *PCA* 10MG/50ML DISP.SYRIN PCA SCH (06:08)
[2016-11-05 08:04] LABS: BASOPHIL 0.8 % (0-2.0); MCH 30.2 pg (25.7-33.7); MCHC 33.5 g/dl (32.0-35.9); MEAN CELL VOLUME 90.4 fl (80-96); MEAN PLT VOLUME 8.6 fl (7.5-11.1); NEUTROPHILS 70.3 % (42.8-82.8); PLATELET COUNT 162 K/MM3 (134-434); RDW 12.4 % (11.9-15.9); WHITE BLOOD COUNT 9.4 K/mm3 (4.0-10.0)
--- NOTE | 2016-11-05 09:02 | PN ---
Progress Note (short form) - Note Progress Note: ID consult dictated imp/reccd 56 year old man with HIV (followed by Dr Davis reports viral load suppressed) , hisotrry of chronic back pain followed by pain management admitted for sudden onset back pain- acute L! compression fracture s/p T12/L1 fusion on 11/02 now with fevers to 102.7 yesterdday reports feeling hot and sweats, no chills or rigors no cough, no sob, no vomiting, no abdominal pain no dysuria constipation-no BM since admission received cefazolin periop received vancomycin and zosyn yesterday afternoon cultures sent cxray no clear infiltrate has BLAZE drain with minimal bloody drainage continues to complain of back pain nontoxic postop fevers=pod #3 no source noted ?hypoventilation doubt HIV related- UA negative blood cultures negative after 24 hours awaiting surgical f/u to examine surgical wound-he refuses to let me look at his back encourage incentive spirometry encourage OOB needs a laxative observe off antibiotics for now consider duplex of legs r/o dvt awaiting surgical evaluation of back wound d/w Dr Rizo he reports wound examined yesterday and was OK hiv- continue ART, check cd4 count f/u Dr Davis at [facility] Problem List - Problems (1) Postoperative fever Code(s): R50.82 - POSTPROCEDURAL FEVER (2) HIV (human immunodeficiency virus infection) Code(s): B20 - HUMAN IMMUNODEFICIENCY VIRUS [HIV] DISEASE
[2016-11-05] MEDS ORDERED: oxyCODONE HCL 5 MG TABLET PO PRN ×3 (09:31→13:16)
--- NOTE | 2016-11-05 09:43 | PN ---
Progress Note (short form) - Note Progress Note: Anesthesiology Pain Service POD#3 s/p TLIF under GA with post-op ASSESSMENT COUNSELOR. Pt. states that he still has pain and is using the ASSESSMENT COUNSELOR regularly,which was confirmed by RN. He is taking PO with no difficulty. I d/w pt. as well as RN a trial of changing to PO meds today. I have d/c'd the ASSESSMENT COUNSELOR and ordered ATC Oxycontin as well as PRN Oxycodone for breakthrough pain. Will adjust as needed. Otherwise, VSS.
[2016-11-05] MEDS ORDERED: PT OWN MED DRAWER 7, Y5N ONE ×2 (11:03→13:34)
[2016-11-05] MEDS: LOSARTAN POTASSIUM 50 MG TABLET (FP) PO SCH (11:18)
[2016-11-05] MEDS: DOCUSATE SODIUM 100 MG CAPSULE (FP) PO SCH ×2 (11:18→21:50)
[2016-11-05] MEDS: oxyCODONE HCL 10 MG SUSTAINED ACTING TABLET PO SCH ×2 (11:18→21:49)
[2016-11-05] MEDS: POLYETHYLENE GLYCOL 3350 119 GM BTL PO SCH (11:19)
[2016-11-05] MEDS: PATIENT'S OWN MEDICATION (NON-FORMULARY) (Darunavir/Cobicistat [Prezcobix 800 Mg-150 Mg Ta PO SCH (11:19)
[2016-11-05] MEDS: PATIENT'S OWN MEDICATION (NON-FORMULARY) (Dolutegravir Sodium 50 MG) PO SCH ×2 (11:19→22:05)
[2016-11-05] MEDS: PREGABALIN 50 MG CAPSULE PO SCH ×2 (11:19→21:47)
--- NOTE | 2016-11-05 11:24 | PN ---
Physical Exam: SUBJECTIVE: Patient seen and examined at bedside. He states that his back still hurts, but it is improved from the wkend. Overnight, pt spiked fever to 102F. Denies chills, chest or extremity pain. OBJECTIVE: Vital Signs Period Temp Pulse Resp BP Sys/Silva Pulse Ox Last 24 Hr 99.0 F-102.1 F 97-111 18-20 137-172/82-101 99 GENERAL: The patient is awake, alert, and fully oriented, in mild distress HEAD: Normal with no signs of trauma. EYES: PERRL, extraocular movements intact, sclera anicteric, conjunctiva clear. NECK: Trachea midline, supple. LUNGS: Breath sounds equal, clear to auscultation bilaterally, no wheezes, no crackles, no accessory muscle use. HEART: Regular rate and rhythm, S1, S2 without murmur, rub or gallop. ABDOMEN: Soft, nontender, nondistended, normoactive bowel sounds, no guarding, no rebound, no hepatosplenomegaly, no masses. EXTREMITIES: 2+ posterior tibial pulses, warm, well-perfused, no edema. Difficult to assess surgical site on back as pt worried to move NEUROLOGICAL: Cranial nerves II through XII grossly intact. Laboratory Results - last 24 hr 11/03/16 11/04/16 11/05/16 06:40 11:30 06:20 WBC 9.4 RBC 3.79 L Hgb 11.5 L Hct 34.2 L MCV 90.4 MCH 30.2 MCHC 33.5 RDW 12.4 Plt Count 162 MPV 8.6 Neutrophils % 70.3 Lymphocytes % 10.3 Monocytes % 17.6 H Eosinophils % 1.0 D Basophils % 0.8 Prostate Specific Ag 0.30 Total Testosterone 362 Free Testosterone 3.5 L Urine Color Ltyellow Urine Appearance Clear Urine pH 7.0 Ur Specific [place] 1.020 Urine Protein Negative Urine Glucose (UA) Negative Urine Ketones Negative Urine Blood Negative Urine Nitrite Negative Urine Bilirubin Negative Urine Urobilinogen 2.0 Ur Leukocyte Esterase Negative Active Medications Generic Name Dose Route Start Last Admin Trade Name Freq PRN Reason Stop Dose Admin Acetaminophen 650 mg 11/02/16 16:43 11/04/16 22:51 Tylenol - PO 650 mg Q6H PRN Administration FEVER OR PAIN Docusate Sodium 100 mg 11/03/16 10:00 11/05/16 11:18 Colace - PO 100 mg DAILY RENUKA Administration Gabapentin 900 mg 11/02/16 22:00 11/04/16 22:42 Neurontin - PO 900 mg HS RENUKA Administration Lactated Ringer's 1,000 mls @ 125 mls/hr 11/02/16 18:55 11/04/16 15:43 Lactated Ringers Solution IV 125 mls/hr ASDIR RENUKA Administration Losartan Potassium 50 mg 11/03/16 10:00 11/05/16 11:18 Cozaar - PO 50 mg DAILY RENUKA Administration Non-Formulary Medication 1 each 11/03/16 10:00 11/05/16 11:19 Darunavir/Cobicistat [Prezcobix 800 Mg-150 Mg Tablet] PO 1 each DAILY RENUKA Administration Non-Formulary Medication 50 mg 11/02/16 22:00 11/05/16 11:19 Dolutegravir Sodium PO 50 mg BID RENUKA Administration Oxycodone HCl 10 mg 11/05/16 10:00 11/05/16 11:18 Oxycontin - PO 11/08/16 09:32 10 mg BID RENUKA Administration Oxycodone HCl 5 mg 11/05/16 09:31 Roxicodone - PO Q3H PRN PAIN LEVEL 1-5 Oxycodone HCl 10 mg 11/05/16 09:31 Roxicodone - PO Q3H PRN PAIN LEVEL 6-10 Polyethylene Glycol 17 gm 11/04/16 10:00 11/05/16 11:19 Miralax (For Daily Use) - PO 17 gm DAILY RENUKA Administration Pregabalin 100 mg 11/03/16 13:01 11/05/16 11:19 Lyrica - PO 100 mg BID RENUKA Administration Promethazine HCl 12.5 mg 11/02/16 16:36 Phenergan Injection - IVPB Q6H PRN NAUSEA AND/OR VOMITING Senna 2 tab 11/02/16 22:00 11/04/16 22:42 Senna - PO 2 tab HS RENUKA Administration ASSESSMENT/PLAN: 56 yr old M with PMH HTN, HIV (on HAART), chronic lower back pain s/p epidural injection, who presented to ED with sudden, severe lower back pain. Pt admitted for L1 compression fracture and HTN urgency. 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/c, scheduled Oxycontin 10mg PO BID and PRN oxycodone on board for breakthrough pain (Pain scale 1-5: oxycodone 5mg PO q3 PRN, scale 6-10: 10mg PO q3 PRN) -Continue Lyrica 100mg PO BID #possible infection s/p spinal fusion -Tmax 102 last night @ 11pm -Currently afebrile, will continue to follow -Will check meningeal signs -UCx: negative # HTN urgency likely secondary to pain -BP improved- 137/84 -Will continue to monitor # HTN- chronic -Continue Cozaar 50 mg PO daily # Delayed bladder emptying -PSA WNL # Constipation -Continue Senna, colace, miralax # HIV- chronic -Continue home meds Dolutegravir Sodium 50 mg PO BID, Prezcobiz1 each PO daily # Insomnia -Continue Zolpidem 10mg PO # DVT prophylaxis -SCD's F/E/N -LR 125 mls/hr -monitor electrolytes -regular diet Visit type - Emergency Visit Emergency Visit: No - New Patient This patient is new to me today: No - Critical Care Critical Care patient: No
--- NOTE | 2016-11-05 12:19 | PN ---
Progress Note (short form) - Note Progress Note: Pt oob to the chair this am. Having pain at surgical site. Vital Signs Period Temp Pulse Resp BP Sys/Silva Pulse Ox Last 24 Hr 99.0 F-102.1 F 97-111 18-20 137-165/82-90 99 BLAZE-serosangrenous 25ml GEN: appear comfortable Back: inc c/d/i with melody. No drainage/erythema or ecchymosis noted. BLAZE removed intact small blister at Blaze opening site. Applied versitle,4x4 gauze and teagderm dressing. Applied new Aquaelcel dressing to incision. Neuro: 5/5 dorsi/plantar flexion. Meat Loiner strenth equal b/l CBC, BMP 11/04/16 06:00 CBC pending Microbiology 11/04/16 08:42 Urine - Urine Clean Catch Urine Culture - Final NO GROWTH OBTAINED 11/04/16 06:00 Blood - Peripheral Venous Blood Culture - Preliminary NO GROWTH OBTAINED AFTER 24 HOURS, INCUBATION TO CONTINUE FOR 4 DAYS. 11/04/16 06:00 Blood - Peripheral Venous Blood Culture - Preliminary NO GROWTH OBTAINED AFTER 24 HOURS, INCUBATION TO CONTINUE FOR 4 DAYS. cxr 11/04-no infiltrate/effusion A/P: 56 yo male s/p T-12-L2 fusion, having fevers post-op Iv abx as per ID, cultures NGTD Wound appears clean and without evidence of infection, dressing changed please keep intact Encourage oob/ambulate/incentive spirometer Monitor fever curve D/w Dr. Mao Luna TAG WRITER discontinued, started oral pain meds. CBC pending for today
--- NOTE | 2016-11-05 12:28 | PN ---
Teaching Attending Note Name of Resident: Krisetn Smith ATTENDING PHYSICIAN STATEMENT I saw and evaluated the patient. I reviewed the resident's note and discussed the case with the resident. I agree with the resident's findings and plan as documented. SUBJECTIVE:improved. states pain is a lot improved. dnies CP, SOB, fever, chills , N/v/C/D, calf pain. able to walk a few steps. no BM s/p BLAZE drain removal OBJECTIVE: Last Vital Signs Temp Pulse Resp BP Pulse Ox 99.9 F H 97 H 18 137/84 99 11/05/16 06:38 11/05/16 07:08 11/05/16 07:08 11/05/16 07:08 11/04/16 21:00 general NAd Back. mild tenderness no sign of erythema or induration at surgical site Extremities no edema or calf tenderness ASSESSMENT AND PLAN: 56yo M with PMH HTN, HIV and chronic back pain presented to the ER with excruciating back pain 1. Acute L1 fracture-s/p T12-L2 fusion 11/02. BLAZE drain with sangenous drainage. on dilaudid ICT BUSINESS DEVELOPMENT MANAGER pump, minimal use of it. transitioned to oxy by anesthesia. oxy 10mg BID and IR of 5mg and 10mg prn breakthrough pain. checked on istop and pt received 20mg from Dr Ledezma on 10/18/16. will increase it to 10mg and 15mg as pt does have higher pain requirements at home but do not want to raise to high as will also be on long acting. will adjust as needed to optimize pain control. PT assessment tomorrow. 2. Fever- Tm 102.1. leukocyutosis resolved. no signs of infection. low suspicion of HIV as factor for infection. BLAZE drain remvoed by surgical PA. surgical site does not appear to be infected. ID consulted. will obtain dopplers to r/o DVT as source of fever. cont to monitor. 3. HTN- improved. likely due to pain. cont current management 4. Constipation-likley opiate induced. will give relistor, has long hx of opiate use. 5. HIV- cont HARRT therapy. VL undetectable per pt. studies sent here 6. DVT ppx- SCD 7. PT assessment as may require SAMIA on discharge. istop reference [id number]
[2016-11-05] MEDS: oxyCODONE HCL 5 MG TABLET PO PRN ×2 (15:11→18:14)
[2016-11-05] MEDS: Methylnaltrexone Bromide 12 MG/0.6 ML KIT SQ SCH (15:11)
--- NOTE | 2016-11-05 19:53 | CONS ---
DATE OF CONSULTATION: HISTORY: This is a 58-year-old man with a past medical history of stable HIV disease. He is followed by Dr. Davis at [facility]. Reports viral load is undetectable. He presented with sudden, severe back pain that occurred after he was coughing. He heard a pop in his lower back. He has a history of chronic back pain, pain management, and multiple epidural injections. He had a workup that included an MRI of his back that showed an acute L1 compression fracture. He was seen by neurosurgery. He underwent a T12-L1 fusion on November 02. Postoperatively he was maintained on a AVIONICS ELECTRICAL ENGINEER pump and was having severe back pain. Postoperative on the he started having fever as high as 102.7. He reports being hot and having sweats but no rigors or chills. He has no more nausea or vomiting. He is eating well. He has not had a bowel movement since admission. He does not have any belly pain. He has no leg swelling. He does not feel short of breath. He is not coughing. He had blood cultures and a UA sent yesterday. As well, he has no dysuria or a [place]. He had cultures, chest x-ray, and a urinalysis sent yesterday and was given a one-time dose of vancomycin and Zosyn. I am asked to see him in follow up. He is currently awake and alert and looks quite comfortable. His only complaint is back pain. He still has a J-P drain with minimal drainage in the bulb. He received Ancef perioperatively as well. PAST MEDICAL HISTORY: Notable for history of hypertension, HIV for over 15 years. He is on treatment and followed by Dr. Davis at [facility]. He has a history of chronic low back pain and is followed in pain management. PAST SURGICAL HISTORY: Notable bariatric surgery done in 2006. He has had left shoulder rotator cuff surgery as well. FAMILY HISTORY: Hypertension, diabetes, and dementia. SOCIAL HISTORY: He is . 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 He has a prior history of substance use, which he discontinued 27 years ago when he found out he was HIV positive. REVIEW OF SYSTEMS: As per HPI. ALLERGIES: He has no known drug allergies. MEDICATIONS: As an outpatient include Prezcobix, mepivacaine, Neurontin, Cozaar, oxycodone, and Ambien. PHYSICAL EXAMINATION: General: He is very well appearing. He is laughing and talking to me and looks quite comfortable. Vital Signs: His T-max is 102.1, current temperature 99.9, pulse 97, blood pressure 137/84, respiratory rate 18. HEENT: He is normocephalic. His eyes are anicteric. Neck: Supple. He has no thrush. Lungs: Clear to auscultation. Heart: Regular rate and rhythm. Skin: He has no phlebitis. Abdomen: Soft. He will not turn. He will not permit me to remove the dressing and look at his back. He has a J-P with some bloody drainage. Extremities: Without edema. White count today is 9.4, hemoglobin 11.5, platelets 162. BUN 11, creatinine 0.9. Urinalysis is negative. Blood cultures are negative after 24 hours. Urine culture is pending. Chest x-ray is negative for any acute infiltrate. 1. In summary, this is a 56-year-old man with postoperative fevers postoperative day number 3. No obvious source noted. Question if this could be hypoventilation from his narcotics. I doubt HIV related given the fact that he had no fevers prior to the surgery. This is all postoperative. UA is negative. Blood cultures are negative. Awaiting surgical follow up to examine the wound. He refuses to let me look at his back. I did speak with Dr. Rose who reports the wound was examined yesterday and was okay. Would encourage incentive spirometry. Encourage out of bed. He needs a laxative. Would obvious off antibiotics for now. If he continues to have fevers, we would also consider a duplex of his legs to rule out DVT. 2. HIV. Would continue his ART and check a CD4 count. He will follow up with Dr. Davis at [place] after discharge. I discussed his case with Dr. Braun as well. JOSR DRAKE M.D. [id number]
[2016-11-05] MEDS: GABAPENTIN 300 MG CAPSULE (FP) PO SCH (21:49)
[2016-11-05] MEDS: SENNOSIDES 8.6MG TABLET (FP) PO SCH (21:50)
[2016-11-06] MEDS: oxyCODONE HCL 5 MG TABLET PO PRN ×4 (05:32→22:05)
[2016-11-06 08:04] LABS: BASOPHIL 0.6 % (0-2.0); EOSINOPHIL 1.5 % (0-4.5); MCH 30.6 pg (25.7-33.7); MCHC 33.7 g/dl (32.0-35.9); MEAN CELL VOLUME 90.6 fl (80-96); MEAN PLT VOLUME 9.2 fl (7.5-11.1); NEUTROPHILS 69.9 % (42.8-82.8); PLATELET COUNT 172 K/MM3 (134-434); RDW 12.3 % (11.9-15.9); WHITE BLOOD COUNT 8.7 K/mm3 (4.0-10.0)
[2016-11-06] MEDS: oxyCODONE HCL 10 MG SUSTAINED ACTING TABLET PO SCH ×2 (10:13→21:22)
[2016-11-06] MEDS: PREGABALIN 50 MG CAPSULE PO SCH ×2 (10:13→21:22)
[2016-11-06] MEDS: DOCUSATE SODIUM 100 MG CAPSULE (FP) PO SCH ×2 (10:14→21:22)
[2016-11-06] MEDS: LOSARTAN POTASSIUM 50 MG TABLET (FP) PO SCH (10:14)
[2016-11-06] MEDS: PATIENT'S OWN MEDICATION (NON-FORMULARY) (Darunavir/Cobicistat [Prezcobix 800 Mg-150 Mg Ta PO SCH (10:15)
[2016-11-06] MEDS: POLYETHYLENE GLYCOL 3350 119 GM BTL PO SCH (10:15)
[2016-11-06] MEDS: PATIENT'S OWN MEDICATION (NON-FORMULARY) (Dolutegravir Sodium 50 MG) PO SCH ×2 (10:15→21:49)
--- NOTE | 2016-11-06 10:30 | PN ---
Progress Note (short form) - Note Progress Note: less back pain temps down remains constipated Vital Signs Period Temp Pulse Resp BP Sys/Silva Pulse Ox Last 24 Hr 97.9 F-99.8 F 83-89 18-18 102-151/50-96 99-99 cor-rrr lungs clear abd soft,nt ext no edema dressing on back CBC, BMP 11/06/16 07:36 11/04/16 06:00 Microbiology 11/04/16 06:00 Blood - Peripheral Venous Blood Culture - Preliminary NO GROWTH OBTAINED AFTER 48 HOURS, INCUBATION TO CONTINUE FOR 3 DAYS. 11/04/16 06:00 Blood - Peripheral Venous Blood Culture - Preliminary NO GROWTH OBTAINED AFTER 48 HOURS, INCUBATION TO CONTINUE FOR 3 DAYS. 11/04/16 08:42 Urine - Urine Clean Catch Urine Culture - Final NO GROWTH OBTAINED duplex negative for dvt Current Medications Acetaminophen (Tylenol -) 650 mg PO Q6H PRN PRN Reason: FEVER OR PAIN Last Admin: 11/04/16 22:51 Dose: 650 mg Docusate Sodium (Colace -) 100 mg PO BID [facility] Last Admin: 11/06/16 10:14 Dose: 100 mg Gabapentin (Neurontin -) 900 mg PO HS [facility] Last Admin: 11/05/16 21:49 Dose: 900 mg Losartan Potassium (Cozaar -) 50 mg PO DAILY [facility] Last Admin: 11/06/16 10:14 Dose: 50 mg Methylnaltrexone [place] (Relistor -) 8 mg SQ DAILY [facility] Last Admin: 11/05/16 15:11 Dose: 8 mg Non-Formulary Medication (Darunavir/Cobicistat [Prezcobix 800 Mg-150 Mg Tablet] ) 1 each PO DAILY [facility] Last Admin: 11/06/16 10:15 Dose: 1 each Non-Formulary Medication (Dolutegravir Sodium) 50 mg PO BID [facility] Last Admin: 11/06/16 10:15 Dose: 50 mg Oxycodone HCl (Oxycontin -) 10 mg PO BID [facility] Stop: 11/08/16 09:32 Last Admin: 11/06/16 10:13 Dose: 10 mg Oxycodone HCl (Roxicodone -) 10 mg PO Q3H PRN PRN Reason: PAIN LEVEL 1-5 Oxycodone HCl (Roxicodone -) 15 mg PO Q3H PRN PRN Reason: PAIN LEVEL 6-10 Last Admin: 11/06/16 08:46 Dose: 15 mg Polyethylene Glycol (Miralax (For Daily Use) -) 17 gm PO DAILY [facility] Last Admin: 11/06/16 10:15 Dose: 17 gm Pregabalin (Lyrica -) 100 mg PO BID [facility] Last Admin: 11/06/16 10:13 Dose: 100 mg Promethazine HCl (Phenergan Injection -) 12.5 mg IVPB Q6H PRN PRN Reason: NAUSEA AND/OR VOMITING Senna (Senna -) 2 tab PO HS [facility] Last Admin: 11/05/16 21:50 Dose: 2 tab a/p postop fevers=pod #4 ?hypoventilation doubt HIV related- Urine culture negative blood cultures negative after 48 hours encourage incentive spirometry encourage OOB needs a laxative observe off antibiotics for now hiv- continue ART, check cd4 count f/u Dr Davis at [facility] Problem List - Problems (1) Postoperative fever Code(s): R50.82 - POSTPROCEDURAL FEVER (2) HIV (human immunodeficiency virus infection) Code(s): B20 - HUMAN IMMUNODEFICIENCY VIRUS [HIV] DISEASE
--- NOTE | 2016-11-06 11:31 | PN ---
Progress Note (short form) - Note Progress Note: Patient doing well after stabilization of L1 burst fracture. Pain has abated and patient is now on oral pain regimen. Wound is clean dry and intact. BLAZE drain discharged yesterday. Patient is able to ambulate short distances. No recent fevers and cultures are all negative to date. Patient is ready for Physical Therapy and Rehabilitation and may be appropriate for inpatient rehabilitation/subacute Rehab. Patient was planning to travel to [place] tomorrow, however, due to his injuries and surgery, should not fly for another 6 weeks.
--- NOTE | 2016-11-06 12:44 | PN ---
Progress Note (short form) - Note Progress Note: Patient would benefit from Lumbar Orthosis such as [place] Quickdraw Contour.
[2016-11-06] MEDS: Methylnaltrexone Bromide 12 MG/0.6 ML KIT SQ SCH (13:07)
[2016-11-06] MEDS ORDERED: MAGNESIUM CITRATE 300 ML BOTTLE PO ONE (13:58)
--- NOTE | 2016-11-06 14:30 | PN ---
Teaching Attending Note Name of Resident: Kristen Smith ATTENDING PHYSICIAN STATEMENT I saw and evaluated the patient. I reviewed the resident's note and discussed the case with the resident. I agree with the resident's findings and plan as documented. SUBJECTIVE:states pain is controlled on oral agents. no fever or chills. denies CP, SOB< fever, chills, N/V/C/D OBJECTIVE: Last Vital Signs Temp Pulse Resp BP Pulse Ox 99.5 F 103 H 20 154/82 99 11/06/16 10:00 11/06/16 10:00 11/06/16 10:11/06/16 10:00 11/05/16 21:00 general NAD ASSESSMENT AND PLAN: 56yo M with PMH HTN, HIV and chronic back pain presented to the ER with excruciating back pain 1. Acute L1 fracture-s/p T12-L2 fusion 11/02. BLAZE drain removed yesterday. afebrile 24H. no leukocytosis. pain controlled on oral agents. will likely benefit from SAMIA and then will need follow up with neurosurgery for further management. may require additional surgery. 2. Fever- afebrile 24H. leukocytosis resolved. sepsis workup negative. BLAZE drain removed. no indicaiton for abx at this time. doppler negative for DVT. 3. HTN- improved. likely due to pain. cont current management 4. Constipation-likley opiate induced. refusing enema. no effect with reslistor. requesting mag citrate. will monitor for BM 5. HIV- cont HARRT therapy. VL undetectable per pt. studies sent here 6. DVT ppx- SCD 7. medically optimized for discharge. may require SAMIA pending PT assessment
[2016-11-06 16:03] LABS: BASOPHIL 0.5 % (0-2.0); MCH 29.7 pg (25.7-33.7); MCHC 32.3 g/dl (32.0-35.9); MEAN CELL VOLUME 91.7 fl (80-96); MEAN PLT VOLUME 9.2 fl (7.5-11.1); NEUTROPHILS 76.7 % (42.8-82.8); PLATELET COUNT 223 K/MM3 (134-434); RDW 12.2 % (11.9-15.9); WHITE BLOOD COUNT 9.1 K/mm3 (4.0-10.0)
[2016-11-06 16:20] LABS: % CD 3 POS. LYMPH. 75.5 % (57.5-86.2); % CD 4 POS LYM 14.8 % (30.8-58.5); %CD3+CD4+CD8+ 0.6 % (Not Estab.); %CD3+CD4+CD8- 14.2 % (Not Estab.); %CD3+CD4-CD8+ 59.4 % (Not Estab.); %CD3+CD4-CD8- 1.2 % (Not Estab.); ABSO. CD 3 755 /uL (622-2402); ABSOLUTE CD 4 HELPER 148 /uL (359-1519); AbsCD3+CD4+CD8+ 6 /uL (Not Estab.); AbsCD3+CD4-CD8+ 594 /uL (Not Estab.); AbsCD3+CD4-CD8- 12 /uL (Not Estab.); CD4/CD8 0.25 (0.92-3.72); CD4/CD8 NYSDOH RATIO 0.24 (Not Estab.); WHITE BLOOD COUNT 9.6 x10E3/uL (3.4-10.8)
--- NOTE | 2016-11-06 16:45 | PN ---
Physical Exam: SUBJECTIVE: Patient seen and examined at bedside. Pt states that his back pain is improved today, but is still bothering him. Tolerating diet well. Denies chest pain, SOB, or extremity pain. OBJECTIVE: Vital Signs Period Temp Pulse Resp BP Sys/Silva Pulse Ox Last 24 Hr 97.9 F-99.8 F 86-103 18-20 102-154/73-96 99-99 GENERAL: The patient is awake, alert, and fully oriented, in no acute distress. HEAD: Normal with no signs of trauma. EYES: PERRL, extraocular movements intact, sclera anicteric, conjunctiva clear. NECK: Trachea midline, full range of motion, supple. LUNGS: Breath sounds equal, clear to auscultation bilaterally, no wheezes, no crackles, no accessory muscle use. HEART: Regular rate and rhythm, S1, S2 without murmur, rub or gallop. ABDOMEN: Soft, nontender, nondistended, normoactive bowel sounds, no guarding, no rebound, EXTREMITIES: back dressing intact, no discharge, BLAZE removed, 2+ posterior tibial pulses, warm, well-perfused, no edema. motor strength 3/5 in both lower extremities, sensation intact NEUROLOGICAL: Cranial nerves II through XII grossly intact. Laboratory Results - last 24 hr 11/02/16 11/03/16 11/05/16 11:45 06:40 11:00 WBC 9.6 RBC Hgb Hct MCV MCH MCHC RDW Plt Count MPV Absolute Lymphs (auto) 1.0 Neutrophils % Lymphocytes % Monocytes % Eosinophils % Basophils % Lymphocytes 11 Nucleated RBCs TNP Prostate Specific Ag 0.30 Total Testosterone 362 Free Testosterone 3.5 L Testosterone Comment No Result Required. Urine Calcium Absolute CD3 Count 755 % CD3+ Lymphocytes 75.5 Absolute CD4 [place] 148 L % CD4+ Lymphocyte 14.8 L CD4/CD8 Ratio 0.25 L % CD8+ Lymphocyte 60.1 H Absolute CD8 Count 601 11/06/16 11/06/16 07:36 15:47 WBC 8.7 9.1 RBC 3.41 L 3.68 L Hgb 10.4 L 10.9 L Hct 30.9 L 33.7 L MCV 90.6 91.7 MCH 30.6 29.7 MCHC 33.7 32.3 RDW 12.3 12.2 Plt Count 172 223 D MPV 9.2 9.2 Absolute Lymphs (auto) Neutrophils % 69.9 76.7 Lymphocytes % 9.6 9.9 Monocytes % 18.4 H 10.9 H Eosinophils % 1.5 2.0 Basophils % 0.6 0.5 Lymphocytes Nucleated RBCs Prostate Specific Ag Total Testosterone Free Testosterone Testosterone Comment Urine Calcium Absolute CD3 Count % CD3+ Lymphocytes Absolute CD4 [place] % CD4+ Lymphocyte CD4/CD8 Ratio % CD8+ Lymphocyte Absolute CD8 Count Active Medications Generic Name Dose Route Start Last Admin Trade Name Freq PRN Reason Stop Dose Admin Acetaminophen 650 mg 11/02/16 16:43 11/04/16 22:51 Tylenol - PO 650 mg Q6H PRN Administration FEVER OR PAIN Docusate Sodium 100 mg 11/05/16 22:00 11/06/16 10:14 Colace - PO 100 mg BID RENUKA Administration Gabapentin 900 mg 11/02/16 22:00 11/05/16 21:49 Neurontin - PO 900 mg HS RENUKA Administration Losartan Potassium 100 mg 11/07/16 10:00 Cozaar - PO DAILY RENUKA Methylnaltrexone [place] 8 mg 11/05/16 14:00 11/06/16 13:07 Relistor - SQ 8 mg DAILY RENUKA Administration Non-Formulary Medication 1 each 11/03/16 10:00 11/06/16 10:15 Darunavir/Cobicistat [Prezcobix 800 Mg-150 Mg Tablet] PO 1 each DAILY RENUKA Administration Non-Formulary Medication 50 mg 11/02/16 22:00 11/06/16 10:15 Dolutegravir Sodium PO 50 mg BID RENUKA Administration Oxycodone HCl 10 mg 11/05/16 10:00 11/06/16 10:13 Oxycontin - PO 11/08/16 09:32 10 mg BID RENUKA Administration Oxycodone HCl 10 mg 11/05/16 13:16 Roxicodone - PO Q3H PRN PAIN LEVEL 1-5 Oxycodone HCl 15 mg 11/05/16 13:16 11/06/16 15:03 Roxicodone - PO 15 mg Q3H PRN Administration PAIN LEVEL 6-10 Polyethylene Glycol 17 gm 11/04/16 10:00 11/06/16 10:15 Miralax (For Daily Use) - PO 17 gm DAILY RENUKA Administration Pregabalin 100 mg 11/03/16 13:01 11/06/16 10:13 Lyrica - PO 100 mg BID RENUKA Administration Promethazine HCl 12.5 mg 11/02/16 16:36 Phenergan Injection - IVPB Q6H PRN NAUSEA AND/OR VOMITING Senna 2 tab 11/02/16 22:00 11/05/16 21:50 Senna - PO 2 tab HS RENUKA Administration ASSESSMENT/PLAN: 56 yr old M with PMH HTN, HIV (on HAART), chronic lower back pain s/p epidural injection, who presented to ED with sudden, severe lower back pain. Pt admitted for L1 compression fracture and HTN urgency. 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 -Will continue to monitor CBC # HTN- chronic -Cozaar 100 mg PO daily # Constipation -Continue Senna, colace, miralax -Mg Citrate added -Will F/u # HIV- chronic -Continue home meds Dolutegravir Sodium 50 mg PO BID, Prezcobiz1 each PO daily # Insomnia -Continue Zolpidem 10mg PO # DVT prophylaxis -SCD's F/E/N -LR 125 mls/hr -monitor electrolytes -regular diet Disposition Will F/u placement Visit type - Emergency Visit Emergency Visit: No - New Patient This patient is new to me today: No - Critical Care Critical Care patient: No
[2016-11-06] MEDS: SENNOSIDES 8.6MG TABLET (FP) PO SCH (21:22)
[2016-11-06] MEDS: GABAPENTIN 300 MG CAPSULE (FP) PO SCH (21:22)
[2016-11-06] MEDS ORDERED: PT OWN MED DRAWER 7, Y5N ONE (21:44)
[2016-11-07] MEDS: oxyCODONE HCL 5 MG TABLET PO PRN ×3 (05:50→21:08)
[2016-11-07 08:05] LABS: MCH 30.4 pg (25.7-33.7); MCHC 33.7 g/dl (32.0-35.9); MEAN CELL VOLUME 90.2 fl (80-96); MEAN PLT VOLUME 8.4 fl (7.5-11.1); PLATELET COUNT 232 K/MM3 (134-434); RDW 12.4 % (11.9-15.9); WHITE BLOOD COUNT 7.5 K/mm3 (4.0-10.0)
--- NOTE | 2016-11-07 10:39 | PN ---
Progress Note (short form) - Note Progress Note: less back pain no BM sitting up at the side of the bed Vital Signs Period Temp Pulse Resp BP Sys/Silva Pulse Ox Last 24 Hr 98.0 F-98.0 F 90-106 18-20 133-157/73-91 99 cor-rrr lungs clear abd soft,nt dressing on back ext no edema CBC, BMP 11/07/16 07:30 11/04/16 06:00 Laboratory Tests 11/05/16 11:00 Absolute CD4 [place] 148 L % CD4+ Lymphocyte 14.8 L duplex negative for dvt Microbiology 11/04/16 06:00 Blood - Peripheral Venous Blood Culture - Preliminary NO GROWTH OBTAINED AFTER 72 HOURS, INCUBATION TO CONTINUE FOR 2 DAYS. 11/04/16 06:00 Blood - Peripheral Venous Blood Culture - Preliminary NO GROWTH OBTAINED AFTER 72 HOURS, INCUBATION TO CONTINUE FOR 2 DAYS. 11/04/16 08:42 Urine - Urine Clean Catch Urine Culture - Final NO GROWTH OBTAINED Current Medications Acetaminophen (Tylenol -) 650 mg PO Q6H PRN PRN Reason: FEVER OR PAIN Last Admin: 11/04/16 22:51 Dose: 650 mg Docusate Sodium (Colace -) 100 mg PO BID [facility] Last Admin: 11/06/16 21:22 Dose: 100 mg Gabapentin (Neurontin -) 900 mg PO HS [facility] Last Admin: 11/06/16 21:22 Dose: 900 mg Losartan Potassium (Cozaar -) 100 mg PO DAILY [facility] Methylnaltrexone Spencer (Relistor -) 8 mg SQ DAILY [facility] Last Admin: 11/06/16 13:07 Dose: 8 mg Non-Formulary Medication (Darunavir/Cobicistat [Prezcobix 800 Mg-150 Mg Tablet] ) 1 each PO DAILY [facility] Last Admin: 11/06/16 10:15 Dose: 1 each Non-Formulary Medication (Dolutegravir Sodium) 50 mg PO BID [facility] Last Admin: 11/06/16 21:49 Dose: 50 mg Oxycodone HCl (Oxycontin -) 10 mg PO BID [facility] Stop: 11/08/16 09:32 Last Admin: 11/06/16 21:22 Dose: 10 mg Oxycodone HCl (Roxicodone -) 10 mg PO Q3H PRN PRN Reason: PAIN LEVEL 1-5 Oxycodone HCl (Roxicodone -) 15 mg PO Q3H PRN PRN Reason: PAIN LEVEL 6-10 Last Admin: 11/07/16 05:50 Dose: 15 mg Polyethylene Glycol (Miralax (For Daily Use) -) 17 gm PO DAILY [facility] Last Admin: 11/06/16 10:15 Dose: 17 gm Pregabalin (Lyrica -) 100 mg PO BID [facility] Last Admin: 11/06/16 21:22 Dose: 100 mg Promethazine HCl (Phenergan Injection -) 12.5 mg IVPB Q6H PRN PRN Reason: NAUSEA AND/OR VOMITING Senna (Senna -) 2 tab PO HS [facility] Last Admin: 11/06/16 21:22 Dose: 2 tab a/p postop fevers=pod #5- resolved hiv- continue ART, will add bactrim for PCP prophylaxis as cd4 count is less then 200, patient is aware and agreeable f/u Dr Davis at [facility] please call back if needed Problem List - Problems (1) Postoperative fever Code(s): R50.82 - POSTPROCEDURAL FEVER (2) HIV (human immunodeficiency virus infection) Code(s): B20 - HUMAN IMMUNODEFICIENCY VIRUS [HIV] DISEASE
[2016-11-07] MEDS: oxyCODONE HCL 10 MG SUSTAINED ACTING TABLET PO SCH ×2 (11:53→22:36)
[2016-11-07] MEDS: PREGABALIN 50 MG CAPSULE PO SCH ×2 (11:53→22:34)
[2016-11-07] MEDS: PATIENT'S OWN MEDICATION (NON-FORMULARY) (Dolutegravir Sodium 50 MG) PO SCH ×2 (11:53→22:39)
[2016-11-07] MEDS: PATIENT'S OWN MEDICATION (NON-FORMULARY) (Darunavir/Cobicistat [Prezcobix 800 Mg-150 Mg Ta PO SCH (11:53)
[2016-11-07] MEDS: DOCUSATE SODIUM 100 MG CAPSULE (FP) PO SCH ×2 (11:54→22:35)
[2016-11-07] MEDS: POLYETHYLENE GLYCOL 3350 119 GM BTL PO SCH (11:54)
[2016-11-07] MEDS: LOSARTAN POTASSIUM 50 MG TABLET (FP) PO SCH (11:54)
[2016-11-07] MEDS: Methylnaltrexone Bromide 12 MG/0.6 ML KIT SQ SCH (11:55)
[2016-11-07 12:06] LABS: PLATELET ESTIMATE ADEQUATE (NORMAL)
--- NOTE | 2016-11-07 16:35 | DS ---
Physical Exam: SUBJECTIVE: Patient seen and examined at bedside. Pt states that his back pain is much improved. Tolerating his diet. Has been OOB. Denies chest pain, SOB, lower extremity pain. OBJECTIVE: Vital Signs Period Temp Pulse Resp BP Sys/Silva Pulse Ox Last 24 Hr 98.0 F-98.2 F 80-106 18-20 130-157/69-91 99 PHYSICAL EXAM GENERAL: The patient is awake, alert, and fully oriented, in no acute distress. HEAD: Normal with no signs of trauma. EYES: PERRL, extraocular movements intact, sclera anicteric, conjunctiva clear. ENT: Ears normal, nares patent, oropharynx clear without exudates, moist mucous membranes. NECK: Trachea midline, full range of motion, supple. LUNGS: Breath sounds equal, clear to auscultation bilaterally, no wheezes, no crackles, no accessory muscle use. HEART: Regular rate and rhythm, S1, S2 without murmur, rub or gallop. ABDOMEN: Soft, nontender, nondistended, normoactive bowel sounds, no guarding, no rebound, EXTREMITIES: 2+ posterior tibial pulses, warm, well-perfused, no edema. NEUROLOGICAL: Cranial nerves II through XII grossly intact. Sensation intact in lower extremities. Strength 4/5 in both lower extremities. VITALS TREND/LABS Vitals Trend 11/01/16 11/02/16 11/02/16 15:00 03:00 10:00 Temperature Pulse Rate Respiratory Rate Blood Pressure 181/108 166/95 179/106 11/02/16 11/02/16 11/02/16 16:30 16:45 17:00 Temperature Pulse Rate Respiratory Rate Blood Pressure 163/76 142/72 134/74 11/02/16 11/02/16 11/02/16 17:15 17:30 17:45 Temperature Pulse Rate Respiratory Rate Blood Pressure 105/54 114/50 101/54 11/02/16 11/02/16 11/02/16 18:00 18:15 18:30 Temperature Pulse Rate Respiratory Rate Blood Pressure 107/49 106/55 105/58 11/02/16 11/02/16 11/02/16 18:45 19:00 19:35 Temperature Pulse Rate Respiratory Rate Blood Pressure 119/68 113/71 108/65 11/02/16 11/02/16 11/02/16 19:50 21:30 22:00 Temperature Pulse Rate Respiratory Rate Blood Pressure 108/65 144/70 130/71 11/03/16 11/03/16 11/03/16 01:30 01:53 05:30 Temperature 99.5 F Pulse Rate 80 99 H 92 H Respiratory 18 20 16 Rate Blood Pressure 144/80 144/80 156/92 11/03/16 11/03/16 11/03/16 06:12 10:00 11:52 Temperature 98.5 F 99.1 F Pulse Rate 95 H 92 H 88 Respiratory 20 18 16 Rate Blood Pressure 156/92 154/92 150/90 11/03/16 11/03/16 11/03/16 12:22 13:22 15:37 Temperature 99.4 F Pulse Rate 84 79 Respiratory 16 18 18 Rate Blood Pressure 140/86 150/80 11/03/16 11/03/16 11/03/16 16:20 21:00 22:00 Temperature 98.9 F 99.4 F Pulse Rate 99 H 90 Respiratory 20 20 20 Rate Blood Pressure 155/88 156/79 11/04/16 11/04/16 11/04/16 01:47 06:00 07:41 Temperature 102.7 F H 101.6 F H Pulse Rate 117 H 102 H 102 H Respiratory 20 20 20 Rate Blood Pressure 164/107 178/99 178/99 11/04/16 11/04/16 11/04/16 09:00 10:00 11:41 Temperature 101.4 F H Pulse Rate 105 H 105 H Respiratory 20 20 20 Rate Blood Pressure 173/102 172/101 11/04/16 11/04/16 11/04/16 14:36 18:00 19:41 Temperature 99.0 F 99.7 F H Pulse Rate 111 H 109 H 109 H Respiratory 20 20 20 Rate Blood Pressure 138/85 165/82 165/82 11/04/16 11/04/16 11/04/16 21:00 22:00 23:41 Temperature 102.1 F H Pulse Rate 108 H 102 H Respiratory 20 18 18 Rate Blood Pressure 147/90 155/89 11/05/16 11/05/16 11/05/16 02:00 06:38 07:08 Temperature 99.9 F H 99.9 F H Pulse Rate 97 H 97 H Respiratory 18 18 Rate Blood Pressure 137/84 137/84 11/05/16 11/05/16 11/05/16 08:08 10:00 10:08 Temperature 99.4 F Pulse Rate 98 H 98 H 92 H Respiratory 18 18 18 Rate Blood Pressure 120/72 120/72 120/74 11/05/16 11/05/16 11/05/16 15:09 18:00 19:20 Temperature 99.6 F 99.8 F H Pulse Rate 83 89 Respiratory 18 18 18 Rate Blood Pressure 125/50 135/76 11/06/16 11/06/16 11/06/16 02:00 06:00 10:00 Temperature 97.9 F 98.4 F 99.5 F Pulse Rate Respiratory 18 18 20 Rate Blood Pressure 102/73 151/96 154/82 11/06/16 11/06/16 11/07/16 14:25 22:00 06:13 Temperature 98.0 F 98.0 F Pulse Rate Respiratory 18 18 Rate Blood Pressure 133/73 148/83 157/91 11/07/16 14:51 Temperature 98.2 F Pulse Rate 80 Respiratory Rate Blood Pressure 130/69 Laboratory Tests 11/03/16 11/03/16 11/04/16 06:40 06:40 06:00 WBC 10.1 H D 11.7 H Hgb Hct Sodium 136 Potassium 4.2 Chloride 102 Carbon Dioxide 26 BUN 12 D Creatinine 0.9 11/04/16 11/05/16 11/06/16 06:00 06:20 07:36 WBC 9.4 8.7 Hgb 11.5 L Hct 34.2 L Sodium 133 L Potassium 4.6 Chloride 100 Carbon Dioxide 27 BUN 11 Creatinine 0.9 11/07/16 07:30 WBC 7.5 Hgb 10.1 L Hct 29.9 L Sodium Potassium Chloride Carbon Dioxide BUN Creatinine IMAGING 11/01/16: Lumbar xray: Partial compression of L1 of uncertain chronicity 11/01/16: Lumbar Spine MRI: moderate acute L1 vertebral body compression fracture is seen with minimal bony retropulsion. Focal subchondral marrow edema is noted within L ventrolateral aspect of L4 vertebral body adjacent to inferior endplate. Equivocal visualization of subtle nondisplaced horizontal fracture line in same region. Moderate Schmorl node visualized along L5 superior endplate with associated marrow edema. Bilateral L5 spondylolysis. 11/02/16: CXR: no pulmonary disease 7/27/17: EKG: normal sinus, possible LA enlargement, LVH with repolarization abnormality, abnormal EKG, no previous EKGs available 11/05/2016: Vascular study: no DVT SURGERIES 11/02/16: Spinal fusion T12-L2 fusion HOSPITAL COURSE: Date of Admission:11/02/16 Date of Discharge: 11/07/16 Admit diagnosis: L1 compression fracture Pre-admission course Patient is a 56 yr old Male, with PMH of HTN, HIV(on HAART, VRL), chronic lower back pain S/P epidural injection, recent bronchitis, who presented to the ED with sudden, severe lower back pain for 6-7 hours. Patient reported that he bent forward and heard a pop in his lower back, which caused severe pain. Pt was on the floor until EMS arrived and carried him away. Pt's pain was a 10/10 , local, sharp, continuous, and does not radiate to his lower legs. Patient denied any numbness, tingling, weakness, bladder incontinence, bowel incontinence or saddle anesthesia. Patient denied fever, chills, headache, blurry vision, chest pain, abdominal pain, N/V/D/C. Hospital course Pt was found to have L1 burst fracture based on Lumbar Xray and spinal MRI, and had a spinal fusion of T12-L2 on 11/02/16. During this time, pt's back pain was treated with [employer] followed by oxycontin 10mg PO BID, and roxicodone 15 mg PO q3 PRN for breakthrough pain coverage. During this time, pt also had hypertension ( most likely due to pain) and was managed on Cozaar 50mg PO daily. After the surgery, pt became febrile at 102F, however he did not have any positive meningeal signs and urine and blood cultures were negative. Thus infection from surgery was unlikely. Pt has been afebrile for 48 hours. Infectious disease placed him on Bactrim 3x a week (M, W, Fr) for PCP prophylaxis d/t his HIV. He will continue his home HAART medications. Minutes to complete discharge: 32 Discharge Summary Reason For Visit: LUMBAR COMPRESSION FRACTURE Current Active Problems Lumbar compression fracture (Acute) HIV (human immunodeficiency virus infection) (Chronic) Condition: Stable - Instructions Diet, Activity, Other Instructions: You were in the hospital for a spine fusion after a vertebral fracture. Please keep incision clean and dry. No baths, sponge bath only. Please call your surgeon if you develop redness, drainage from your incision or fevers. Call your surgeon's office to schedule a follow-up appointment in 1 week. Follow -up with your primary care doctor in 1 week as well. Your new medication regimen is attached. Please also take the antibiotic, Bactrim (1 tablet) three times a week on Sunday, Sunday, and Sunday for HIV pneumonia prophylaxis. We hope you feel better soon. Please go to the hospital if you become short of breath, develop chest pain, or any new symptoms. Referrals: Sergei Cavanaugh MD, [facility] [Staff Physician] - Disposition: HOME - Home Medications Comprehensive Discharge Medication List: Ambulatory Orders Darunavir/Cobicistat [Prezcobix 800 mg-150 mg Tablet] 1 each PO DAILY 11/01/16 Dolutegravir Sodium [Tivicay] 50 mg PO BID 11/01/16 Gabapentin [Neurontin] 900 mg PO HS 11/01/16 Losartan Potassium [Cozaar] 50 mg PO DAILY 11/01/16 Zolpidem Tartrate 10 mg PO HS PRN 11/01/16 Acetaminophen [Tylenol .Regular Strength -] 650 mg PO Q6H PRN #0 tablet Docusate Sodium [Colace -] 100 mg PO BID tab 11/07/16 Oxycodone HCl 10 mg PO QID PRN #28 tab 11/07/16 Polyethylene Glycol 3350 [Miralax (For Daily Use) -] 17 gm PO DAILY #1 bottle Sulfamethoxazole/Trimethoprim [Bactrim DS -] 1 each PO MoWeFr@1000 #12 tablet This patient is new to me today: No Emergency Visit: No Critical Care patient: No - Discharge Referral Referred to [facility] No
--- NOTE | 2016-11-07 18:08 | PN ---
Teaching Attending Note Name of Resident: Kristen Smith ATTENDING PHYSICIAN STATEMENT I saw and evaluated the patient. I reviewed the resident's note and discussed the case with the resident. I agree with the resident's findings and plan as documented. SUBJECTIVE: OBJECTIVE: Vital Signs Period Temp Pulse Resp BP Sys/Silva Pulse Ox Last 24 Hr 98.0 F-99.3 F 80-108 18-24 130-157/69-91 99 ASSESSMENT AND PLAN: 56yo M with PMH HTN, HIV and chronic back pain presented to the ER with excruciating back pain 1. Acute L1 fracture-s/p T12-L2 fusion 11/02. BLAZE drain removed yesterday. afebrile 24H. no leukocytosis. pain controlled on oral agents. will likely benefit from SAMIA and then will need follow up with neurosurgery for further management. may require additional surgery. 2. Fever- afebrile 24H. leukocytosis resolved. sepsis workup negative. LBAZE drain removed. no indicaiton for abx at this time. doppler negative for DVT. 3. HTN- improved. likely due to pain. cont current management 4. Constipation-likley opiate induced. refusing enema. no effect with reslistor. requesting mag citrate. will monitor for BM 5. HIV- cont HARRT therapy. VL undetectable per pt. studies sent here 6. DVT ppx- SCD 7. medically optimized for discharge. may require SAMIA pending PT assessment
[2016-11-07] MEDS: GABAPENTIN 300 MG CAPSULE (FP) PO SCH (22:35)
[2016-11-07] MEDS: SENNOSIDES 8.6MG TABLET (FP) PO SCH (22:36)
[2016-11-08] MEDS: oxyCODONE HCL 5 MG TABLET PO PRN ×2 (02:05→08:42)
[2016-11-08] MEDS ORDERED: SODIUM PHOSPHATE/NA BIPHOS 133 ML ENEMA PR ONE (08:52)
[2016-11-08] MEDS: POLYETHYLENE GLYCOL 3350 119 GM BTL PO SCH (09:44)
[2016-11-08] MEDS: Methylnaltrexone Bromide 12 MG/0.6 ML KIT SQ SCH (09:44)
[2016-11-08] MEDS ORDERED: PT OWN MED DRAWER 7, Y5N ONE (09:50)
[2016-11-08] MEDS: DOCUSATE SODIUM 100 MG CAPSULE (FP) PO SCH (09:50)
[2016-11-08] MEDS: LOSARTAN POTASSIUM 50 MG TABLET (FP) PO SCH (09:51)
[2016-11-08] MEDS: PATIENT'S OWN MEDICATION (NON-FORMULARY) (Dolutegravir Sodium 50 MG) PO SCH (09:51)
[2016-11-08] MEDS: PATIENT'S OWN MEDICATION (NON-FORMULARY) (Darunavir/Cobicistat [Prezcobix 800 Mg-150 Mg Ta PO SCH (09:51)
[2016-11-08] MEDS: PREGABALIN 50 MG CAPSULE PO SCH (09:51)
[2016-11-08] MEDS ORDERED: SULFAMETHOXAZOLE/TRIMETHOPRIM 800MG/160MG D.S. TABLET PO SCH (10:00)
[2016-11-08 16:11] VITALS: BP 125/82; PULSE 90; TEMP 98.6
--- NOTE | 2016-11-08 17:17 | PN ---
Teaching Attending Note Name of Resident: Kristen Smith ATTENDING PHYSICIAN STATEMENT I saw and evaluated the patient. I reviewed the resident's note and discussed the case with the resident. I agree with the resident's findings and plan as documented. SUBJECTIVE: OBJECTIVE: Vital Signs Period Temp Pulse Resp BP Sys/Silva Pulse Ox Last 24 Hr 98.4 F-98.9 F 75-90 18-20 124-148/70-82 99-99 ASSESSMENT AND PLAN:
== END 2016-11-08 14:25 | disposition home or self-care (01) | DRG 458 ==
LOC: JER 14:57 → JERBED 11-02 00:04 → UNDOADMIN 11-02 00:35 → JERBED 11-02 00:35 → J8W 11-02 03:01
PROVIDERS: ADMIT Internal Medicine; ATTEND Internal Medicine
PROC: 0JX70ZC Transfer Back Subcutaneous Tissue and Fascia with Skin, Subcutaneous Tissue and Fascia, Open Approach (ICD-10-PCS; 2016-11-02)
PROC: 0SG1071 Fusion of 2 or more Lumbar Vertebral Joints with Autologous Tissue Substitute, Posterior Approach, Posterior Column, Open Approach (ICD-10-PCS; principal; 2016-11-02 14:00)
DX: M48.56XA Collapsed vertebra, not elsewhere classified, lumbar region, initial encounter for fracture (principal); I10 Essential (primary) hypertension; K59.00 Constipation, unspecified; Z21 Asymptomatic human immunodeficiency virus [HIV] infection status; R50.82 Postprocedural fever; D64.9 Anemia, unspecified; G47.00 Insomnia, unspecified
CPT/HCPCS: 36415; 71010-TC; 72100-TC; 72131-TC; 72148-TC; 76000-TC; 80048; 80053; 81003; 82340; 84100; 84153; 84402; 84443; 85025; 85610; 85651; 85730; 86359; 86360; 86850; 86900; 86901; 87040; 87086; 93005; 93010; 93970-TC; 94760; 97116-GP; 97161-GP; 99284-25

== ENCOUNTER 2017-04-16 11:09 | Emergency (ER) | payer BC ==
[2017-04-16 11:32] VITALS: BP 157/114; PULSE 97; TEMP 99; BMI 27.3
[2017-04-16] MEDS ORDERED: KETOROLAC TROMETHAMINE 60 MG/2 ML VIAL IM ONE (12:21)
--- NOTE | 2017-04-16 12:21 | PDOC ---
History of Present Illness - General Chief Complaint: Back Pain Stated Complaint: BACK PAIN Time Seen by Provider: 04/16/17 12:00 History Source: Patient Exam Limitations: No Limitations - History of Present Illness Initial Comments: 04/16/17 12:14 Here with complaints of acute onset of re-exacerbation chronic back pain. Has a long-standing back issues and currently in pain management and states has run out of his Percocet. States was stooping, and sick to his stomach this morning when he felt an acute onset Occurred: reports: this morning Severity: reports: moderate, severe Pain Location: reports: back Loss of Consciousness: no loss of consciousness Associated Symptoms (Fall): denies symptoms Past History - Travel Traveled outside of the country in the last 30 days: No Close contact w/someone who was outside of country & ill: No - Past Medical History Allergies/Adverse Reactions: Allergies Allergy/AdvReac Type Severity Reaction Status Date / Time No Known Allergies Allergy Verified 04/16/17 11:27 Home Medications: Ambulatory Orders Darunavir/Cobicistat [Prezcobix 800 mg-150 mg Tablet] 1 each PO DAILY 11/01/16 Dolutegravir Sodium [Tivicay] 50 mg PO BID 11/01/16 Gabapentin [Neurontin] 900 mg PO HS 11/01/16 Losartan Potassium [Cozaar] 50 mg PO DAILY 11/01/16 Zolpidem Tartrate 10 mg PO HS PRN 11/01/16 Amlodipine Besylate [Norvasc -] 10 mg PO DAILY 02/02/17 Docusate Sodium [Colace -] 100 mg PO TID #90 cap 02/12/17 Oxycodone HCl [Oxycodone HCl ER] 10 mg PO Q12H #10 tab.er.12h MDD 20 mg Oxycodone HCl/Acetaminophen [Oxycodone-Acetaminophen 10-325] 1 each PO Q6H #10 tablet MDD pain 04/16/17 Anemia: No Asthma: No Cancer: No Cardiac Disorders: No CVA: No COPD: No CHF: No Dementia: No Diabetes: No GI Disorders: No Disorders: No HTN: Yes (BORDERLINE) Hypercholesterolemia: No Liver Disease: No Seizures: No Thyroid Disease: No - Surgical History Abdominal Surgery: Yes (inguinal hernia) Gastric Stapling: Yes (bipass) Orthopedic Surgery: Yes - Suicide/Smoking/Psychosocial Hx Smoking History: Current some day smoker Have you smoked in the past 12 months: Yes Number of Cigarettes Smoked Daily: 5 Information on smoking cessation initiated: No 'Breaking Loose' booklet given: 02/02/17 Hx Alcohol Use: No Drug/Substance Use Hx: No Substance Use Type: None Hx Substance Use Treatment: No Trauma Specific PMHX - Complaint Specific PMHX Arthritis: No Back Injury: Yes Neck Injury: Yes Review of Systems - Review of Systems Able to Perform ROS?: Yes Is the patient limited [place] Citizen proficient: Yes Constitutional: Yes: Symptoms Reported, See HPI, Malaise Respiratory: Yes: Symptoms reported Musculoskeletal: Yes: Symptoms Reported, See HPI Neurological: Yes: Symptoms reported, See HPI, Headache, Weakness All Other Systems: Reviewed and Negative *Physical Exam - Vital Signs Last Vital Signs Temp Pulse Resp BP Pulse Ox 99 F 97 H 19 157/114 97 04/16/17 11:27 04/16/17 11:27 04/16/17 11:27 04/16/17 11:27 04/16/17 11:27 - Physical Exam General Appearance: Yes: Nourished, Appropriately Dressed, Mild Distress, Moderate Distress Neck: positive: Supple. negative: Tender, Lymphadenopathy (R), Lymphadenopathy (L) Respiratory/Chest: positive: Lungs Clear, Normal Breath Sounds Gastrointestinal/Abdominal: positive: Soft Musculoskeletal: positive: Vertebral Tenderness (slow and limited secondary to exquisite back pain spinous muscles and lumbar spine, no crepitus or step-offs. Range of motion is limited secondary to this tenderness.) Extremity: positive: Normal Capillary Refill. negative: Normal Range of Motion Integumentary: positive: Normal Color, Dry, Warm, Pale Neurologic: positive: services rep II-XII NML intact, Fully Oriented, Alert, Normal Mood/ Affect, Normal Response, Motor Strength 5/5 Progress Note - Progress Note Progress Note: Dr. Guzman, neurosurgery notified of patient's arrival. He recommends CAT scan of the back to reevaluate known lumbar disc disease for further prognosis and possible testing. Patient provided with Toradol and taken for lumbar spine CAT scan without contrast Medical Decision Making - Medical Decision Making 04/16/17 14:27 Dr. Diamond will review CAT scan, and see patient in the emergency department. Patient will be given 2 tablets of Percocet 04/16/17 15:53 Dr. Diamond arrived discussed CAT scan findings with patient who reports are unchanged and without evidence of significant new injury. Discussed need to be wearing a back brace, and will not prescribe further pain medications as patient is in pain management program. With lengthy discussion about need for continuing pain management contract will prescribe #10 tablets of oxycodone 10 mg which is one half his normal prescription dose for approximately 24-36 hours of pain control to allow him time to get to his pain management program tomorrow. Patient reports has appointment on Sunday04/16/17 15:54 *DC/Admit/Observation/Transfer Diagnosis at time of Disposition: Acute exacerbation of chronic low back pain - Discharge Dispostion Disposition: HOME Condition at time of disposition: Stable Admit: No - Prescriptions Prescriptions: Oxycodone HCl/Acetaminophen [Oxycodone-Acetaminophen 10-325] 1 each PO Q6H #10 tablet MDD pain - Referrals Referrals: STAFF,NOT ON [Primary Care Provider] - - Patient Instructions Printed Discharge Instructions: Shoe Insoles Do Not Appear to Prevent Chronic Low Back Pain Additional Instructions: Rest, ice to area on and off for 15 minutes 4-6 times a day Avoid heavy lifting or exercise until pain and swelling is resolved or until further directed Keep area highly elevated to reduce swelling Use splints/Kendell wrap as directed Followup with orthopedist in one to 2 days if not improving, if significantly improved may wait one week for followup with orthopedist May use ibuprofen 2-200 mg tablets every 6 hours as needed for pain Continue with pain management as prescribed - Post Discharge Activity
[2017-04-16] MEDS ORDERED: KETOROLAC TROMETHAMINE 60 MG/2 ML VIAL ONE (12:25)
== END 2017-04-16 16:04 | disposition home or self-care (01) ==
LOC: JERFT 11:09
PROC: 3E0233Z Introduction of Anti-inflammatory into Muscle, Percutaneous Approach (ICD-10-PCS; principal; 2017-04-16)
DX: M54.5 Low back pain (principal); I10 Essential (primary) hypertension; F17.210 Nicotine dependence, cigarettes, uncomplicated
CPT/HCPCS: 72131-TC; 99281-25

== ENCOUNTER 2022-04-07 15:53 | Observation (INO) | payer OTHER, BC ==
[2022-04-07 16:03] VITALS: BMI 25.8
[2022-04-07] MEDS ORDERED: KETOROLAC TROMETHAMINE 15 MG/ML VIAL ONE (17:15)
[2022-04-07] MEDS: SODIUM CHLORIDE 2,245 ML IV ONE ×2 (18:34)
[2022-04-07 18:43] LABS: PH,URINE 6.5 (5.0-8.0); URINE APPEARANCE CLEAR; URINE BILIRUBIN NEGATIVE (NEGATIVE); URINE COLOR YELLOW; URINE GLUCOSE (UA) NEGATIVE (NEGATIVE); URINE KETONE NEGATIVE (NEGATIVE); URINE LEUK ESTERASE NEGATIVE (NEGATIVE); URINE NITRITE NEGATIVE (NEGATIVE); URINE PROTEIN NEGATIVE (NEGATIVE)
[2022-04-07 18:57] LABS: BASO % 1.4 % (0-2.0); EOS % 9.8 % (0-4.5); HEMOGLOBIN 12.8 GM/dL (11.7-16.9); LYMPH % 31.6 % (8-40); MCH 27.4 pg (25.7-33.7); MCHC 32.1 g/dl (32.0-35.9); MEAN CELL VOLUME 85.3 fl (80-96); MEAN PLT VOLUME 8.9 fl (7.5-11.1); MONO % 12.6 % (3.8-10.2); NEUT % 44.6 % (42.8-82.8); PLATELET COUNT 433 10^3/uL (134-434); RBC 4.69 M/mm3 (4.00-5.60); RDW 15.6 % (11.9-15.9); WHITE BLOOD COUNT 4.9 K/mm3 (4.0-10.0)
[2022-04-07 19:10] LABS: CHLORIDE 103 mmol/L (98-107); SODIUM 137 mmol/L (136-145)
[2022-04-07 19:15] LABS: ALBUMIN 3.6 g/dl (3.4-5.0); ANION GAP 8 MMOL/L (8-16); BLOOD UREA NITROGEN 14.5 mg/dL (7-18); CO2 26 mmol/L (21-32); GLUCOSE,RANDOM 88 mg/dL (74-106)
[2022-04-07 19:17] LABS: SGOT/AST 23 U/L (15-37); SGPT/ALT 41 U/L (13-61)
[2022-04-07 19:19] LABS: BILIRUBIN,TOTAL 0.7 mg/dL (0.2-1)
[2022-04-07 19:20] LABS: ALK PHOS 70 U/L (45-117)
[2022-04-07 19:21] LABS: INR 1.03 (0.83-1.09); PROTHROMBIN TIME (PATIENT) 11.9 SEC (9.7-13.0)
[2022-04-07 19:24] LABS: ACTIVATED PTT 26.6 SECONDS (25.2-36.5)
[2022-04-07] MEDS ORDERED: DEXAMETHASONE SOD PHOSPHATE 10 MG/1 ML VIAL IVPUSH ONE (22:12)
[2022-04-07] MEDS ORDERED: DEXAMETHASONE SOD PHOSPHATE 10 MG/1 ML VIAL ONE (22:35)
[2022-04-07] MEDS ORDERED: CYCLOBENZAPRINE HCL 10 MG TABLET (FP) PO ONE (23:01)
[2022-04-07] MEDS ORDERED: CYCLOBENZAPRINE HCL 5 MG TABLET ONE (23:19)
[2022-04-08] MEDS ORDERED: ZOLPIDEM TARTRATE 5 MG TABLET PO PRN (00:21)
[2022-04-08] MEDS ORDERED: HYDROmorphone HCL 2 MG TABLET ONE ×3 (00:26→15:44)
[2022-04-08] MEDS: HYDROmorphone HCL 2 MG TABLET PO PRN ×4 (00:32→21:57)
[2022-04-08 01:46] LABS: HIV INTERPRETATION PRESUMPTIVE POSITIVE (NEGATIVE)
[2022-04-08] MEDS ORDERED: KETOROLAC TROMETHAMINE 15 MG/ML VIAL IVPUSH ONE (03:50)
[2022-04-08 07:20] LABS: BASO % 0.4 % (0-2.0); EOS % 0.1 % (0-4.5); HEMATOCRIT 38.1 % (35.4-49); HEMOGLOBIN 12.1 GM/dL (11.7-16.9); LYMPH % 21.2 % (8-40); MCHC 31.6 g/dl (32.0-35.9); MEAN CELL VOLUME 85.4 fl (80-96); MEAN PLT VOLUME 8.3 fl (7.5-11.1); MONO % 2.2 % (3.8-10.2); NEUT % 76.1 % (42.8-82.8); PLATELET COUNT 363 10^3/uL (134-434); RBC 4.46 M/mm3 (4.00-5.60); RDW 14.9 % (11.9-15.9); WHITE BLOOD COUNT 3.9 K/mm3 (4.0-10.0)
[2022-04-08 07:43] LABS: ALBUMIN 3.2 g/dl (3.4-5.0); BLOOD UREA NITROGEN 22.2 mg/dL (7-18); CALCIUM 8.4 mg/dL (8.5-10.1); MAGNESIUM 2.1 mg/dL (1.8-2.4)
[2022-04-08 07:46] LABS: CREATININE 1.1 mg/dL (0.55-1.3); PHOSPHOROUS 3.2 mg/dL (2.5-4.9)
[2022-04-08 07:48] LABS: BILIRUBIN,TOTAL 0.5 mg/dL (0.2-1); TOT PROT 7.4 g/dl (6.4-8.2)
[2022-04-08] MEDS: DOCUSATE SODIUM 100 MG CAPSULE (FP) PO SCH ×3 (08:19→21:56)
[2022-04-08] MEDS ORDERED: LOSARTAN POTASSIUM 50 MG TABLET ONE (09:28)
[2022-04-08] MEDS ORDERED: amLODIPine BESYLATE 10 MG TABLET (FP) ONE (09:28)
[2022-04-08] MEDS: LOSARTAN POTASSIUM 50 MG TABLET PO SCH (09:34)
[2022-04-08] MEDS: ENOXAPARIN NA (PORCINE) 40 MG/0.4 ML DISP.SYRIN SQ SCH (09:34)
[2022-04-08] MEDS: amLODIPine BESYLATE 10 MG TABLET (FP) PO SCH (09:34)
[2022-04-08] MEDS: DARUNAVIR 800 MG/COBICISTAT 150MG TABLET PO SCH (12:17)
[2022-04-08] MEDS: DOLUTEGRAVIR SODIUM 50 MG TABLET (NON-FORMULARY) PO SCH ×2 (12:17→21:58)
[2022-04-08] MEDS ORDERED: DOCUSATE SODIUM 100 MG CAPSULE (FP) PO ONE (15:19)
[2022-04-08] MEDS ORDERED: GABAPENTIN 300 MG CAPSULE PO SCH (22:00)
[2022-04-09] MEDS: HYDROmorphone HCL 2 MG TABLET PO PRN ×3 (03:41→22:03)
[2022-04-09] MEDS: DOCUSATE SODIUM 100 MG CAPSULE (FP) PO SCH (06:41)
[2022-04-09] MEDS: LOSARTAN POTASSIUM 50 MG TABLET PO SCH (09:40)
[2022-04-09] MEDS: ENOXAPARIN NA (PORCINE) 40 MG/0.4 ML DISP.SYRIN SQ SCH (09:40)
[2022-04-09] MEDS: amLODIPine BESYLATE 10 MG TABLET (FP) PO SCH (09:40)
[2022-04-09] MEDS: DOLUTEGRAVIR SODIUM 50 MG TABLET (NON-FORMULARY) PO SCH ×2 (09:41→22:04)
[2022-04-09] MEDS: DARUNAVIR 800 MG/COBICISTAT 150MG TABLET PO SCH (09:41)
[2022-04-09 10:07] LABS: BASO % 0.6 % (0-2.0); EOS % 0.6 % (0-4.5); HEMATOCRIT 37.2 % (35.4-49); HEMOGLOBIN 11.6 GM/dL (11.7-16.9); LYMPH % 15.7 % (8-40); MCH 26.9 pg (25.7-33.7); MCHC 31.2 g/dl (32.0-35.9); MEAN CELL VOLUME 86.4 fl (80-96); MEAN PLT VOLUME 8.5 fl (7.5-11.1); MONO % 10.7 % (3.8-10.2); NEUT % 72.4 % (42.8-82.8); PLATELET COUNT 324 10^3/uL (134-434); RBC 4.31 M/mm3 (4.00-5.60); RDW 14.6 % (11.9-15.9); WHITE BLOOD COUNT 8.3 K/mm3 (4.0-10.0)
[2022-04-09] MEDS ORDERED: HYDROmorphone HCl 2 MG/ML VIAL IVPB ONE (10:15)
[2022-04-09 10:34] LABS: CALCIUM 8.5 mg/dL (8.5-10.1)
[2022-04-09 10:35] LABS: ALBUMIN 3.1 g/dl (3.4-5.0); BLOOD UREA NITROGEN 22.1 mg/dL (7-18); MAGNESIUM 2.1 mg/dL (1.8-2.4)
[2022-04-09 10:38] LABS: CREATININE 1.3 mg/dL (0.55-1.3)
[2022-04-09 10:39] LABS: BILIRUBIN,TOTAL 0.4 mg/dL (0.2-1)
[2022-04-09] MEDS: ACETAMINOPHEN 500 MG TABLET (FP) PO SCH ×3 (11:33→22:02)
[2022-04-09] MEDS: LIDOCAINE 5% TOPICAL PATCH TP SCH (11:34)
[2022-04-09] MEDS: GABAPENTIN 300 MG CAPSULE PO SCH ×2 (13:40→22:04)
[2022-04-09] MEDS ORDERED: DOCUSATE SODIUM 100 MG CAPSULE (FP) PO SCH (22:00)
[2022-04-09] MEDS ORDERED: LIDOCAINE PATCH REMOVAL MC SCH (22:00)
[2022-04-10] MEDS: ACETAMINOPHEN 500 MG TABLET (FP) PO SCH ×2 (04:49→09:49)
[2022-04-10] MEDS: HYDROmorphone HCL 2 MG TABLET PO PRN (04:50)
[2022-04-10] MEDS: GABAPENTIN 300 MG CAPSULE PO SCH ×2 (06:39→14:06)
[2022-04-10] MEDS: LIDOCAINE 5% TOPICAL PATCH TP SCH (09:48)
[2022-04-10] MEDS: amLODIPine BESYLATE 10 MG TABLET (FP) PO SCH (09:49)
[2022-04-10] MEDS: DARUNAVIR 800 MG/COBICISTAT 150MG TABLET PO SCH (09:50)
[2022-04-10] MEDS: DOLUTEGRAVIR SODIUM 50 MG TABLET (NON-FORMULARY) PO SCH (09:50)
[2022-04-10] MEDS: ENOXAPARIN NA (PORCINE) 40 MG/0.4 ML DISP.SYRIN SQ SCH (09:59)
[2022-04-10 10:02] VITALS: BP 113/78; PULSE 88; RESP 16; TEMP 98
[2022-04-10] MEDS: LOSARTAN POTASSIUM 50 MG TABLET PO SCH ×2 (12:33→12:34)
== END 2022-04-10 14:02 | disposition home or self-care (01) ==
LOC: JER 15:53 → JERBED 17:30 → INTOOBSV 17:30 → UNDOADMOB 17:30 → JERBED 04-08 11:12 → J8W 04-08 19:37
PROVIDERS: ADMIT Internal Medicine; ATTEND Nurse Practitioner Acute Care
DX: M54.50 Low back pain, unspecified (principal); I10 Essential (primary) hypertension; B20 Human immunodeficiency virus [HIV] disease; Z29.8 Encounter for other specified prophylactic measures; K59.03 Drug induced constipation
CPT/HCPCS: 0241U-QW; 36415; 71045-TC-FY; 72070-TC-FY; 72100-TC-FY; 72128-TC; 72131-TC; 72157-TC; 72158-TC; 80053; 81003; 82550; 82553; 83605; 83735; 84100; 84443; 85025; 85610; 85730; 86359; 86360; 87040; 87086; 87389; 87536; 93005; 93010; 96374; 96375; 97161-GP; 99285-25; A9579; G0378; J1100